=== PATIENT | female | born 1930 | race Caucasian/White ===

== ENCOUNTER → 2016-09-09 | Outpatient (CLI) | payer BC ==
[~2016-09-09] MED LIST: ACET-24 PO; CARV6.252 PO; CHOL100010 PO; CHOL20005 PO; CLOP1TAB15 PO; DENO60SO SC; DLCS PR; DOCU-94 PO; HYDR-3419 PO; HYDR-5688 PO; HYDR25TA4 PO; MELA1TAB5 PO; MORP1TAB12 PO; MORP30TA23 PO; MRLP17X PO; NISO20TA PO; PRAM1TAB52 PO; PRT40 PO; RISE150T PO; SENN-63 PO; SENN8.6T7 PO; SPIR25TA PO
[2016-09-09 09:16] LABS: ALT/SGPT 25 U/L (12-78); BLOOD UREA NITROGEN 13 mg/dl (7-18); BUN/CREATININE RATIO 20.2 (10-20); CARBON DIOXIDE 30 mmol/L (21-32); CHLORIDE 107 mmol/L (98-107); CREATININE 0.64 mg/dl (0.60-1.20); GLUCOSE 84 mg/dl (70-99); POTASSIUM 3.5 mmol/L (3.5-5.1); SODIUM 143 mmol/L (136-145)
[2016-09-09 09:26] LABS: ALB/GLOB RATIO 1.1 (0.9-2); ALKALINE PHOSPHATASE 62 U/L (45-117); AST/SGOT 25 U/L (15-37)
[2016-09-09 09:43] LABS: HEMATOCRIT 35.6 % (37-47); MEAN CELL VOLUME 94.7 fL (80-100); MEAN CORPUSCULAR HEMOGLOBIN 31.9 pg (25-34); MEAN CORPUSCULAR HGB CONC 33.7 g/dl (32-36); MEAN PLATELET VOLUME 10.8 fL (7.4-10.4); PLATELET COUNT 182 K/uL (130-400); RED BLOOD COUNT 3.76 M/uL (4.2-5.4)
== END ==
LOC: C.LABFOXMH 08:38
PROVIDERS: ATTEND Internal Medicine
DX: R60.0 Localized edema (principal); R63.4 Abnormal weight loss

== ENCOUNTER → 2016-11-19 | Outpatient (CLI) | payer BC ==
[2016-11-19 11:19] LABS: HEMATOCRIT 41.9 % (37-47); MEAN CELL VOLUME 95.7 fL (80-100); MEAN CORPUSCULAR HEMOGLOBIN 31.1 pg (25-34); MEAN CORPUSCULAR HGB CONC 32.5 g/dl (32-36); MEAN PLATELET VOLUME 10.4 fL (7.4-10.4); PLATELET COUNT 228 K/uL (130-400); RED BLOOD COUNT 4.38 M/uL (4.2-5.4); WHITE BLOOD COUNT 10.22 K/uL (4.8-10.8)
[2016-11-19 11:31] LABS: BLOOD UREA NITROGEN 17 mg/dl (7-18); BUN/CREATININE RATIO 21.2 (10-20); CALCIUM 11.2 mg/dl (8.5-10.1); CARBON DIOXIDE 24 mmol/L (21-32); CHLORIDE 111 mmol/L (98-107); CREATININE 0.78 mg/dl (0.60-1.20); GLUCOSE 106 mg/dl (70-99); MAGNESIUM 2.1 mg/dl (1.8-2.4); POTASSIUM 4.4 mmol/L (3.5-5.1); SODIUM 142 mmol/L (136-145)
== END | disposition home or self-care (01) ==
LOC: C.LABFOXMH 10:53
PROVIDERS: ATTEND Internal Medicine
DX: E11.9 Type 2 diabetes mellitus without complications (principal); R19.7 Diarrhea, unspecified

== ENCOUNTER → 2016-11-20 | Outpatient (CLI) | payer BC ==
[2016-11-20 11:53] LABS: HEMATOCRIT 40.3 % (37-47); MEAN CELL VOLUME 95.7 fL (80-100); MEAN CORPUSCULAR HEMOGLOBIN 31.1 pg (25-34); MEAN CORPUSCULAR HGB CONC 32.5 g/dl (32-36); MEAN PLATELET VOLUME 10.6 fL (7.4-10.4); PLATELET COUNT 223 K/uL (130-400); RED BLOOD COUNT 4.21 M/uL (4.2-5.4); WHITE BLOOD COUNT 11.67 K/uL (4.8-10.8)
[2016-11-20 12:03] LABS: BLOOD UREA NITROGEN 22 mg/dl (7-18); BUN/CREATININE RATIO 24.8 (10-20); CARBON DIOXIDE 23 mmol/L (21-32); CHLORIDE 110 mmol/L (98-107); CREATININE 0.88 mg/dl (0.60-1.20); GLUCOSE 95 mg/dl (70-99); MAGNESIUM 1.9 mg/dl (1.8-2.4); POTASSIUM 4.1 mmol/L (3.5-5.1); SODIUM 142 mmol/L (136-145)
[2016-11-20 12:10] LABS: CALCIUM 11.7 mg/dl (8.5-10.1)
== END | disposition home or self-care (01) ==
LOC: C.LABFOXDH 08:45
PROVIDERS: ATTEND Internal Medicine
DX: R19.7 Diarrhea, unspecified (principal)

== ENCOUNTER → 2016-11-23 | Outpatient (CLI) | payer BC ==
[2016-11-23 08:38] LABS: BLOOD UREA NITROGEN 23 mg/dl (7-18); BUN/CREATININE RATIO 37.7 (10-20); CARBON DIOXIDE 28 mmol/L (21-32); CHLORIDE 108 mmol/L (98-107); GLUCOSE 91 mg/dl (70-99); POTASSIUM 3.8 mmol/L (3.5-5.1); SODIUM 142 mmol/L (136-145)
[2016-11-23 08:45] LABS: CALCIUM 10.1 mg/dl (8.5-10.1)
== END | disposition home or self-care (01) ==
LOC: C.LABFOXDH 07:56
PROVIDERS: ATTEND Nurse Practitioner Family
DX: A04.7 Enterocolitis due to Clostridium difficile (principal)

== ENCOUNTER 2017-01-12 06:34 | Inpatient (IN) | payer OTHER, BC ==
[~2017-01-12] VITALS: Ht 152.4 cm; Wt 50.4 kg
[~2017-01-12 06:34] MED LIST changes: -ACET-24 PO; -CHOL20005 PO; -DENO60SO SC; -DLCS PR; -DOCU-94 PO; -HYDR-5688 PO; -MELA1TAB5 PO; -MORP1TAB12 PO; -MRLP17X PO; -PRAM1TAB52 PO; -PRT40 PO; -SENN8.6T7 PO; -SPIR25TA PO
[2017-01-12 07:02] LABS: BASO % 0.8 %; BASO ABS # 0.05 K/uL (0-0.2); COMPLETE YES; EOS % 4.2 %; IG% 0.2 %; LYMPH % 26.7 %; LYMPH ABS # 1.78 K/uL (1.2-3.4); MEAN CELL VOLUME 94.1 fL (80-100); MEAN CORPUSCULAR HEMOGLOBIN 31.5 pg (25-34); MEAN CORPUSCULAR HGB CONC 33.4 g/dl (32-36); MEAN PLATELET VOLUME 9.6 fL (7.4-10.4); MONO % 11.6 %; NEUT % 56.5 %; PLATELET COUNT 209 K/uL (130-400); WHITE BLOOD COUNT 6.66 K/uL (4.8-10.8)
[2017-01-12] MEDS ORDERED: DOCU-94 PO (07:06)
[2017-01-12] MEDS ORDERED: HYDR-5688 PO (07:06)
[2017-01-12] MEDS ORDERED: MORP1TAB12 PO (07:06)
[2017-01-12] MEDS ORDERED: MELA1TAB5 PO (07:06)
[2017-01-12] MEDS ORDERED: DENO60SO SC (07:06)
[2017-01-12] MEDS ORDERED: SPIR25TA PO (07:06)
[2017-01-12] MEDS ORDERED: CHOL20005 PO (07:06)
[2017-01-12 07:09] LABS: PARTIAL THROMBOPLASTIN RATIO 1.1
[2017-01-12 07:16] LABS: BUN/CREATININE RATIO 33.4 (10-20); CALCIUM 10.8 mg/dl (8.5-10.1); CREATININE 0.8 mg/dl (0.60-1.20); POTASSIUM 4.4 mmol/L (3.5-5.1)
[2017-01-12] MEDS ORDERED: FENTANYL CITRATE INJ 50 MCG/1 ML 2 ML VIAL ONE (07:18)
[2017-01-12] MEDS ORDERED: FENTANYL CITRATE INJ 50 MCG/1 ML 2 ML VIAL IV STA ×2 (07:19→08:12)
--- NOTE | 2017-01-12 07:36 | EMERGENCY ROOM VISIT NOTE ---
History Report prepared by Leonidas: Claudia Murguia Under the Supervision of: Dr. Alphonso Collins M.D. First contact with patient: 07:06 Chief Complaint: HIP PAIN Stated Complaint: HIP PAIN History of Present Illness The patient is an 86 year old female who presents to the Emergency Room with complaints of constant right hip pain that started EVENT PLANNER. The patient came to the ED via ambulance. She was given 8 mg of morphine en route to the ED. The patient states that she was standing at the table when she fell backward. The patient thinks that she fell because she was leaning on the chair and it fell over so she ended up falling with it. However, she is not exactly sure why she fell. She denies tripping over anything. She landed on her right hip. She denies any lightheadedness or chest pain prior to falling. The patient does not think that she hit her head. She denies neck pain, back pain, abdominal pain, and nausea. The patient is on Plavix for her heart. She does not take aspirin. Source of History: patient Onset: EVENT PLANNER Position: other (right hip) Quality: other (right hip pain) Timing: constant Associated Symptoms: No neck pain, No chest pain, No nausea, No abdominal pain, No back pain Note: no lightheadedness Review of Systems See HPI for pertinent positives and negatives. A total of ten systems were reviewed and were otherwise negative. 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 (2) Closed displaced fracture of right femoral neck (3) Diab Kath Wo Compl, Type Ii Or Unspec Type, Not Uncntrld (4) Hyperlipidemia Nec/Nos (5) Hypertension Nos (6) Lumbosacral Neuritis Nos (7) Lumbosacral Spondylosis (8) Polymyalgia Rheumatica (9) Sacroiliitis Nec (10) Venous Insufficiency Nos Family History No significant family history Social History Smoking Status: Never Smoker Alcohol Use: none Drug Use: none Marital Status: Occupation Status: retired Current/Historical Medications Scheduled Carvedilol (Coreg), 6.25 MG PO BID Cholecalciferol (Vitamin D3), 2,000 UNITS PO DAILY Clopidogrel (Plavix), 75 MG PO DAILY Denosumab (Prolia), 1 SYR SC Q6MO Morphine Sulfate (Morphine Sulfate Er), 30 MG PO QPM Pramipexole Dihydrochloride (Mirapex), 1 TAB PO HS Spironolactone (Aldactone), 25 MG PO DAILY Scheduled PRN Docusate Sodium (Colace), 1 CAP PO DAILY PRN for Constipation Hydrocodone/Acetaminophen 5MG/325MG ([place] 5MG/325MG), 1 TABLET PO Q4 PRN for Pain Melatonin (Kp Melatonin), 1 TAB PO HS PRN for Insomnia Allergies Coded Allergies: Adhesives (Verified Allergy, Mild, unknown, 06/10/15) Amoxicillin (Verified Allergy, Mild, rash, 06/10/15) Cephalexin (Verified Allergy, Mild, unknown, 06/10/15) Clavulanic Acid (Verified Allergy, Mild, rash, 06/10/15) Hydroxychloroquine (Verified Allergy, Mild, unknown, 06/10/15) Latex1 -Allergic Contact Dermititis (Verified Allergy, Mild, RASH, ) Zolpidem (Verified Allergy, Mild, rash, 06/10/15) Bacitracin (Verified Allergy, Unknown, rash, 06/10/15) Polymyxin B (Verified Allergy, Unknown, rash, 06/10/15) Uncoded Allergies: TELFA (Allergy, Mild, UNKNOWN, 03/17/13) Physical Exam Vital Signs Date Time Temp Pulse Resp B/P (MAP) Pulse Ox O2 Delivery O2 Flow Rate FiO2 01/12/17 08:15 86 16 152/96 96 Room Air 01/12/17 07:36 69 18 161/75 95 Room Air 01/12/17 06:42 37.1 69 18 151/108 95 Room Air Physical Exam GENERAL: Awake, alert, thin appearing, no distress HEAD: Normocephalic, atraumatic. No arciniega sign. No raccoon eyes. EYES: Normal conjunctiva. PERRL. EARS: External ears normal. NOSE: Atraumatic OROPHARYNX: Mucous membranes dry. No erythema or exudate. NECK: No tracheal deviation or JVD. No posterior midline tenderness. No step offs noted. RESPIRATORY: CTA bilaterally CARDIAC: Regular rate, normal rhythm. ABDOMEN: Inspection reveals no abnormalities. Soft, non distended. No tenderness to palpation. No hernias. BACK: No midline step offs or tenderness to palpation. Unremarkable. PELVIS: Stable to rock but tenderness to the right, deformity at the proximal femur with pain with range of motion. SKIN: Normal. LYMPH: No adenopathy. MUSCULOSKELETAL: Upper and lower extremities are atraumatic. Distal pulse, motor , sensory intact. NEURO: GCS 15. Normal sensorium. No sensory or motor deficits noted. Medical Decision & Procedures ER Provider Diagnostic Interpretation: Radiology results as stated below per my review and radiologist interpretation: CHEST ONE VIEW PORTABLE FINDINGS: Electrodes overlying the mid thoracic spine along the right side are unchanged. Cardiac silhouette is again enlarged. 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 Based on this projection, this appears to measure up to 5.5 cm. This may be accentuated by patient rotation to the left. No pneumothorax or large pleural effusion. Coarse perihilar reticular opacities suggest chronic changes without focal airspace consolidation. Lungs are mildly hyperinflated. The bones are diffusely demineralized. Sigmoidal scoliosis of the spine is seen. IMPRESSION: 1. No acute cardiopulmonary process. 2. Atherosclerosis with apparent aneurysmal dilation and tortuosity of the thoracic aorta which appears progressed from study dated 10/30/2009 and likely accentuated by patient rotation. The above report was generated using voice recognition software. It may contain grammatical, syntax or spelling errors. Electronically signed by: Jose Adam M.D. 01/12/2017 8:07 AM Dictated Date/Time: 01/12/2017 8:03 AM RIGHT PELVIS/UNILATERAL HIP 2-3VIEWS, RIGHT FEMUR 2 VIEWS ROUTINE FINDINGS: Pelvis and right hip: Moderate degenerative changes are seen within the pubic symphysis. 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 There is convex right curvature of the lumbar spine with multilevel advanced degenerative changes. The bones are moderately demineralized throughout. Peripheral vascular calcifications are seen. There is an acute transcervical fracture of the right femoral neck with superior displacement of 1.3 cm involving the distal femoral neck. No significant impaction. The femoral head is maintained within the acetabular fossa. Moderate soft tissue swelling is seen about the right hip. Lesser and greater trochanters are intact. Right femur: Mildly displaced transcervical right femoral neck fracture is again seen. The distal femur is intact. Moderate degenerative changes are seen about the right knee with small joint effusion. IMPRESSION: 1. Acute mildly displaced transcervical fracture of the right femoral neck with associated soft tissue swelling. 2. No additional acute pelvic or right femoral fracture identified. The above report was generated using voice recognition software. It may contain grammatical, syntax or spelling errors. Electronically signed by: Jose Adam M.D. 01/12/2017 8:02 AM Dictated Date/Time: 01/12/2017 7:58 AM Laboratory Results 01/12/17 06:40 Red Blood Count 3.40, Mean Corpuscular Volume 94.1, Mean Corpuscular Hemoglobin 31.5, Mean Corpuscular Hemoglobin Concent 33.4, Mean Platelet Volume 9.6, Neutrophils (%) (Auto) 56.5, Lymphocytes (%) (Auto) 26.7, Monocytes (%) (Auto) 11.6, Eosinophils (%) (Auto) 4.2, Basophils (%) (Auto) 0.8, Neutrophils # (Auto ) 3.77, Lymphocytes # (Auto) 1.78, Monocytes # (Auto) 0.77, Eosinophils # (Auto ) 0.28, Basophils # (Auto) 0.05 01/12/17 06:40 Test 01/12/17 06:40 01/12/17 08:26 White Blood Count 6.66 K/uL (4.8-10.8) Red Blood Count 3.40 M/uL (4.2-5.4) Hemoglobin 10.7 g/dL (12.0-16.0) Hematocrit 32.0 % (37-47) Mean Corpuscular Volume 94.1 fL (80-100) Mean Corpuscular Hemoglobin 31.5 pg (25-34) Mean Corpuscular Hemoglobin Concent 33.4 g/dl (32-36) Platelet Count 209 K/uL (130-400) Mean Platelet Volume 9.6 fL (7.4-10.4) Neutrophils (%) (Auto) 56.5 % Lymphocytes (%) (Auto) 26.7 % Monocytes (%) (Auto) 11.6 % Eosinophils (%) (Auto) 4.2 % Basophils (%) (Auto) 0.8 % Neutrophils # (Auto) 3.77 K/uL (1.4-6.5) Lymphocytes # (Auto) 1.78 K/uL (1.2-3.4) Monocytes # (Auto) 0.77 K/uL (0.11-0.59) Eosinophils # (Auto) 0.28 K/uL (0-0.5) Basophils # (Auto) 0.05 K/uL (0-0.2) RDW Standard Deviation 41.3 fL (36.4-46.3) RDW Coefficient of Variation 12.2 % (11.5-14.5) Immature Granulocyte % (Auto) 0.2 % Immature Granulocyte # (Auto) 0.01 K/uL (0.00-0.02) Prothrombin Time 11.0 SECONDS (9.0-12.0) Prothromb Time International Ratio 1.0 (0.9-1.1) Activated Partial Thromboplast Time 28.6 SECONDS (21.0-31.0) Partial Thromboplastin Ratio 1.1 Anion Gap 6.0 mmol/L (3-11) Est Creatinine Clear Calc Drug Dose 35.6 ml/min Estimated GFR () 76.8 Estimated GFR (Non- 66.3 BUN/Creatinine Ratio 33.4 (10-20) Calcium Level 10.8 mg/dl (8.5-10.1) 25-Hydroxy Vitamin D Total 41.9 ng/ml (30-100) Urine Color YELLOW Urine Appearance CLEAR (CLEAR) Urine pH 6.0 (4.5-7.5) Urine Specific [place] 1.019 (1.000-1.030) Urine Protein NEG (NEG) Urine Glucose (UA) NEG (NEG) Urine Ketones NEG (NEG) Urine Occult Blood NEG (NEG) Urine Nitrite NEG (NEG) Urine Bilirubin NEG (NEG) Urine Urobilinogen NEG (NEG) Urine Leukocyte Esterase NEG (NEG) Date/Time Source Procedure Growth Status 01/12/17 00:00 Nasal MRSA DNA Surveillance Screen - Final Specimen Negative for MRSA by DNA Probe Complete Laboratory results reviewed by me Medications Administered Medications (Trade) Dose Ordered Sig/Thomas Route Start Time Stop Time Status Last Admin Dose Admin Fentanyl Citrate (Fentanyl Inj) 50 mcg NOW STAT IV 01/12/17 07:19 01/12/17 07:20 DC 01/12/17 07:35 50 MCG Fentanyl Citrate (Fentanyl Inj) 50 mcg NOW STAT IV 01/12/17 08:12 01/12/17 08:20 DC 01/12/17 08:33 50 MCG Ondansetron HCl (Zofran Inj) 4 mg Q6H PRN IV 01/12/17 08:45 02/11/17 08:44 01/12/17 14:17 4 MG Oxycodone HCl (Roxicodone Immediate Rel Tab) 5 mg Q4H PRN PO 01/12/17 08:45 01/26/17 08:44 01/12/17 12:11 5 MG Morphine Sulfate (MoRPHine SULFATE INJ) 2 mg Q2H PRN IV 01/12/17 08:45 01/26/17 08:44 01/12/17 12:54 2 MG ECG Indication: weakness Rate (beats per minute): 70 Rhythm: normal sinus Findings: 1st degree AV block, RBBB (baseline), no acute ischemic change Comparison ECG Date: 10/30/2009 Change: 1st degree AV block is new ED Course 0717: The patient was evaluated in room A11. A complete history and physical exam was performed. 0804: Upon reexamination, the patient was resting comfortably. I discussed the test results and treatment plan with her. The patient will be evaluated for further management. 0812: Ordered Fentanyl Citrate 50 mcg IV 0821: Discussed the patient's case with Dr. Morrison of the [facility]. The patient will be evaluated for further treatment and disposition. Medical Decision I reviewed the patient's past medical history, medications, and the nursing notes as described above. Differential diagnosis: Etiologies such as fracture, dislocation, neurovascular compromise, soft tissue injury Patient is a 86-year-old woman with a past medical history of coronary disease on Plavix presents to the emergency department after a fall at home when she was standing at a table leaning on a chair and lost her balance falling down. Patient denies any preceding chest pain shortness of breath headaches or dizziness or head strike or LOC. On arrival patient is uncomfortable with right leg internally rotated and slightly shortened. Distal pulse motor sensory intact. AFVSS. Neuro intact without any evidence of head trauma. No indication for CT scan at this time. Otherwise, X-ray demonstrated a right mildly displaced femoral neck fracture. Preoperative labs ordered and Boyd catheter placed. H&H mildly decreased from recent however patient denies any bloody or black stools. EKG similar to prior. [facility] as patient has follow with them in the past and evaluated patient. Admitted to hospital medicine considering patient's age and comorbidities. Head Trauma GCS Score: 15 Medication Reconcilliation Current Medication List: was personally reviewed by me Blood Pressure Screening Patient's blood pressure: Elevated blood pressure Blood pressure disposition: Elevated BP felt to be situational Consults Time Called: 806 Consulting Physician: Dr. Morrison - MNP Returned Call: 0821 Discussed the patient's case with Dr. Morrison of the [facility]. The patient will be evaluated for further treatment and disposition. Impression Primary Impression: Displaced fracture of right femoral neck Scribe Attestation The scribe's documentation has been prepared under my direction and personally reviewed by me in its entirety. I confirm that the note above accurately reflects all work, treatment, procedures, and medical decision making performed by me. Departure Information Dispostion Being Evaluated By Hospitalist Referrals Araceli Contreras (PCP) Patient Instructions My [facility] Problem Qualifiers Primary Impression: Displaced fracture of right femoral neck Encounter type: initial encounter Fracture type: closed Qualified Codes: S72.001A - Fracture of unspecified part of neck of right femur, initial encounter for closed fracture
--- NOTE | 2017-01-12 08:04 | DIAGNOSTIC IMAGING REPORT ---
RIGHT PELVIS/UNILATERAL HIP 2-3VIEWS, RIGHT FEMUR 2 VIEWS ROUTINE HISTORY: 86 years-old Female Right hip pain s/p fall Right COMPARISON: None available TECHNIQUE: AP view of the pelvis with 2 views of the right hip. 3 views of the right femur were also obtained. FINDINGS: Pelvis and right hip: Moderate degenerative changes are seen within the pubic symphysis. 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 There is convex right curvature of the lumbar spine with multilevel advanced degenerative changes. The bones are moderately demineralized throughout. Peripheral vascular calcifications are seen. There is an acute transcervical fracture of the right femoral neck with superior displacement of 1.3 cm involving the distal femoral neck. No significant impaction. The femoral head is maintained within the acetabular fossa. Moderate soft tissue swelling is seen about the right hip. Lesser and greater trochanters are intact. Right femur: Mildly displaced transcervical right femoral neck fracture is again seen. The distal femur is intact. Moderate degenerative changes are seen about the right knee with small joint effusion. IMPRESSION: 1. Acute mildly displaced transcervical fracture of the right femoral neck with associated soft tissue swelling. 2. No additional acute pelvic or right femoral fracture identified. The above report was generated using voice recognition software. It may contain grammatical, syntax or spelling errors. Electronically signed by: Jose Adam M.D. 01/12/2017 8:02 AM Dictated Date/Time: 01/12/2017 7:58 AM
--- NOTE | 2017-01-12 08:08 | DIAGNOSTIC IMAGING REPORT ---
CHEST ONE VIEW PORTABLE HISTORY: 86 years-old Female FAll, hip injury COMPARISON: Chest radiograph 10/30/2009 TECHNIQUE: Portable AP view of the chest. FINDINGS: Electrodes overlying the mid thoracic spine along the right side are unchanged. Cardiac silhouette is again enlarged. 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 Based on this projection, this appears to measure up to 5.5 cm. This may be accentuated by patient rotation to the left. No pneumothorax or large pleural effusion. Coarse perihilar reticular opacities suggest chronic changes without focal airspace consolidation. Lungs are mildly hyperinflated. The bones are diffusely demineralized. Sigmoidal scoliosis of the spine is seen. IMPRESSION: 1. No acute cardiopulmonary process. 2. Atherosclerosis with apparent aneurysmal dilation and tortuosity of the thoracic aorta which appears progressed from study dated 10/30/2009 and likely accentuated by patient rotation. The above report was generated using voice recognition software. It may contain grammatical, syntax or spelling errors. Electronically signed by: Jose Adam M.D. 01/12/2017 8:07 AM Dictated Date/Time: 01/12/2017 8:03 AM
[2017-01-12 08:37] LABS: URINE APPEARANCE CLEAR (CLEAR); URINE BILIRUBIN NEG (NEG); URINE COLOR YELLOW; URINE NITRITE NEG (NEG); URINE SPECIFIC GRAVITY 1.019 (1.000-1.030); UROBILINOGEN NEG (NEG); ZZURINE CULT IF INDIC CATH NO
[2017-01-12 08:40] LABS: MANUAL MICROSCOPIC REQUIRED? NO; REVIEW REQ? NO
[2017-01-12] MEDS ORDERED: POLYETHYLENE (MIRALAX) 17 GM PACK PO PRN (08:45)
[2017-01-12] MEDS ORDERED: NALOXONE HCL 0.4 MG/1 ML VIAL/CARP IV PRN (08:45)
[2017-01-12] MEDS ORDERED: SOD PHOSPHATE/SOD BIPHOSPHATE ENEMA 132 ML BTL PR PRN (08:45)
[2017-01-12] MEDS ORDERED: BISACODYL 10 MG SUPP PR PRN (08:45)
[2017-01-12] MEDS ORDERED: MAGNESIUM HYDROXIDE SUSP 30 ML UDC PO PRN (08:45)
--- NOTE | 2017-01-12 08:49 | History and Physical ---
History & Physical Date & Time of Service: Jan 12, 2017 at 08:28 Chief Complaint: Hip Pain Primary Care Physician: Araceli Contreras History of Present Illness Source: patient This is a 86 yo F with PMHx of HTN, polymyalgia rheumatica with remote use of chronic prednisone, remote smoking hx, 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 She reports being seated in her living room, and that she was reaching for some cards she was planning on mailing, and the chair moved and she fell on the ground. Pt regularly uses a walker for ambulation and was using it this morning. She was on the ground and crawled to the bedroom to ring for a nurse, and now has a skin tear on her left elbow. She denies any LOC, trauma or injury sustained to the head. The patient states last time she ate was last evening. She reports her pain is currently moderate, although cannot give a number. It is localized to the right hip, and feels like she needs to keep moving her toes although that worsens the pain. She denies any numbness or tingling. Pt notes she was recently treated by Dr. De La Garza and was very sick due to an antibiotic although cannot name it. I called and spoke with nursing at [facility]: the patient recently had a very bad case of C. difficile, on November 19- admitted to [facility] at [facility], due to 1 time dose of Clindamycin used for prophylactic dental procedure and extraction as she was being fitted for a new partial. Pt took plavix last evening. Here in the ED, imaging obtained and shows an Acute mildly displaced transcervical fracture of the right femoral neck with associated soft tissue swelling. No additional acute pelvic or right femoral fracture identified. Hgb is 10.7, and slightly decreased from her baseline of 12.5-13. Past Medical/Surgical History Polymyalgia Rhematica Osteoporosis HTN Chronic Back pain Remote Smoking history Hx CVA in 2009 on plavix Family History No significant family history Social History Smoking Status: Former Smoker Smokeless Tobacco Use: No Alcohol Use: none Drug Use: none Marital Status: Housing status: lives alone Occupational Status: retired Immunizations History of Influenza Vaccine: Yes Influenza Vaccine Date: October 31, 2008 History of Tetanus Vaccine?: Unknown History of Pneumococcal: Yes Pneumococcal Date: November 01, 2007 History of Hepatitis B Vaccine: Unknown Multi-Drug Resistant Organisms History of MDRO: No Allergies Coded Allergies: Adhesives (Verified Allergy, Mild, unknown, 06/10/15) Amoxicillin (Verified Allergy, Mild, rash, 06/10/15) Cephalexin (Verified Allergy, Mild, unknown, 06/10/15) Clavulanic Acid (Verified Allergy, Mild, rash, 06/10/15) Hydroxychloroquine (Verified Allergy, Mild, unknown, 06/10/15) Latex1 -Allergic Contact Dermititis (Verified Allergy, Mild, RASH, ) Zolpidem (Verified Allergy, Mild, rash, 06/10/15) Bacitracin (Verified Allergy, Unknown, rash, 06/10/15) Polymyxin B (Verified Allergy, Unknown, rash, 06/10/15) Uncoded Allergies: TELFA (Allergy, Mild, UNKNOWN, 03/17/13) Home Medications Scheduled Carvedilol (Coreg), 6.25 MG PO BID Cholecalciferol (Vitamin D3), 2,000 UNITS PO DAILY Clopidogrel (Plavix), 75 MG PO DAILY Denosumab (Prolia), 1 SYR SC Q6MO Morphine Sulfate (Morphine Sulfate Er), 30 MG PO QPM Pramipexole Dihydrochloride (Mirapex), 1 TAB PO HS Spironolactone (Aldactone), 25 MG PO DAILY Scheduled PRN Docusate Sodium (Colace), 1 CAP PO DAILY PRN for Constipation Hydrocodone/Acetaminophen 5MG/325MG ([place] 5MG/325MG), 1 TABLET PO Q4 PRN for Pain Melatonin (Kp Melatonin), 1 TAB PO HS PRN for Insomnia Review of Systems Constitutional: No fever, No chills, No sweats Eyes: No redness, No diplopia ENT: No sore throat, No trouble swallowing Respiratory: No cough, No shortness of breath, No dyspnea on exertion, No dyspnea at rest Cardiovascular: No chest pain, No palpitations Abdomen: + constipation (occasionally, last BM was yesterday), No pain, No nausea, No vomiting, No diarrhea, No GI bleeding Musculoskeletal: + joint pain (R hip), No swelling, No calf pain Genitourinary - Female: No dysuria, No urinary urgency Neurologic: No memory loss, No paralysis Psychiatric: No anxiety Endocrine: No fatigue, No excessive thirst Hematologic / Lymphatic: No abnormal bleeding/bruising, No clotting problems Integumentary: No rash, No itch Physical Exam Vital Signs Date Time Temp Pulse Resp B/P (MAP) Pulse Ox O2 Delivery O2 Flow Rate FiO2 01/12/17 08:15 86 16 152/96 96 Room Air 01/12/17 07:36 69 18 161/75 95 Room Air 01/12/17 06:42 37.1 69 18 151/108 95 Room Air General Appearance: WD/WN, no apparent distress, + thin Head: normocephalic, atraumatic Eyes: PERRL, EOMI ENT: hearing grossly normal, pharynx normal Neck: supple, no JVD Respiratory/Chest: chest non-tender, lungs clear, no respiratory distress, no accessory muscle use Cardiovascular: no JVD, no murmur, + tachycardia, + pertinent finding (few extra beats) Abdomen/GI: normal bowel sounds, non tender, soft, no organomegaly Extremities/Musculoskelatal: normal inspection, no calf tenderness Neurologic/Psych: alert, normal mood/affect, normal reflexes, oriented x 3 Skin: normal color, warm/dry Diagnostics Laboratory Results Results Past 24 Hours Test 01/12/17 06:40 Range/Units White Blood Count 6.66 4.8-10.8 K/uL Red Blood Count 3.40 4.2-5.4 M/uL Hemoglobin 10.7 12.0-16.0 g/dL Hematocrit 32.0 37-47 % Mean Corpuscular Volume 94.1 80-100 fL Mean Corpuscular Hemoglobin 31.5 25-34 pg Mean Corpuscular Hemoglobin Concent 33.4 32-36 g/dl Platelet Count 209 130-400 K/uL Mean Platelet Volume 9.6 7.4-10.4 fL Neutrophils (%) (Auto) 56.5 % Lymphocytes (%) (Auto) 26.7 % Monocytes (%) (Auto) 11.6 % Eosinophils (%) (Auto) 4.2 % Basophils (%) (Auto) 0.8 % Neutrophils # (Auto) 3.77 1.4-6.5 K/uL Lymphocytes # (Auto) 1.78 1.2-3.4 K/uL Monocytes # (Auto) 0.77 0.11-0.59 K/uL Eosinophils # (Auto) 0.28 0-0.5 K/uL Basophils # (Auto) 0.05 0-0.2 K/uL RDW Standard Deviation 41.3 36.4-46.3 fL RDW Coefficient of Variation 12.2 11.5-14.5 % Immature Granulocyte % (Auto) 0.2 % Immature Granulocyte # (Auto) 0.01 0.00-0.02 K/uL Prothrombin Time 11.0 9.0-12.0 SECONDS Prothromb Time International Ratio 1.0 0.9-1.1 Activated Partial Thromboplast Time 28.6 21.0-31.0 SECONDS Partial Thromboplastin Ratio 1.1 Sodium Level 139 136-145 mmol/L Potassium Level 4.4 3.5-5.1 mmol/L Chloride Level 105 98-107 mmol/L Carbon Dioxide Level 28 21-32 mmol/L Anion Gap 6.0 3-11 mmol/L Blood Urea Nitrogen 27 7-18 mg/dl Creatinine 0.80 0.60-1.20 mg/dl Est Creatinine Clear Calc Drug Dose 35.6 ml/min Estimated GFR () 76.8 Estimated GFR (Non- 66.3 BUN/Creatinine Ratio 33.4 10-20 Random Glucose 108 70-99 mg/dl Calcium Level 10.8 8.5-10.1 mg/dl Diagnostic Radiology RIGHT PELVIS/UNILATERAL HIP 2-3VIEWS, RIGHT FEMUR 2 VIEWS ROUTINE HISTORY: 86 years-old Female Right hip pain s/p fall Right COMPARISON: None available TECHNIQUE: AP view of the pelvis with 2 views of the right hip. 3 views of the right femur were also obtained. FINDINGS: Pelvis and right hip: Moderate degenerative changes are seen within the pubic symphysis. 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 There is convex right curvature of the lumbar spine with multilevel advanced degenerative changes. The bones are moderately demineralized throughout. Peripheral vascular calcifications are seen. There is an acute transcervical fracture of the right femoral neck with superior displacement of 1.3 cm involving the distal femoral neck. No significant impaction. The femoral head is maintained within the acetabular fossa. Moderate soft tissue swelling is seen about the right hip. Lesser and greater trochanters are intact. Right femur: Mildly displaced transcervical right femoral neck fracture is again seen. The distal femur is intact. Moderate degenerative changes are seen about the right knee with small joint effusion. IMPRESSION: 1. Acute mildly displaced transcervical fracture of the right femoral neck with associated soft tissue swelling. 2. No additional acute pelvic or right femoral fracture identified. The above report was generated using voice recognition software. It may contain grammatical, syntax or spelling errors. Electronically signed by: Jose Adam M.D. 01/12/2017 8:02 AM Dictated Date/Time: 01/12/2017 7:58 AM The status of this report is Signed. HISTORY: 86 years-old Female FAll, hip injury COMPARISON: Chest radiograph 10/30/2009 TECHNIQUE: Portable AP view of the chest. FINDINGS: Electrodes overlying the mid thoracic spine along the right side are unchanged. Cardiac silhouette is again enlarged. 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 Based on this projection, this appears to measure up to 5.5 cm. This may be accentuated by patient rotation to the left. No pneumothorax or large pleural effusion. Coarse perihilar reticular opacities suggest chronic changes without focal airspace consolidation. Lungs are mildly hyperinflated. The bones are diffusely demineralized. Sigmoidal scoliosis of the spine is seen. IMPRESSION: 1. No acute cardiopulmonary process. 2. Atherosclerosis with apparent aneurysmal dilation and tortuosity of the thoracic aorta which appears progressed from study dated 10/30/2009 and likely accentuated by patient rotation. The above report was generated using voice recognition software. It may contain grammatical, syntax or spelling errors. Electronically signed by: Jose Adam M.D. 01/12/2017 8:07 AM Dictated Date/Time: 01/12/2017 8:03 AM The status of this report is Signed. EKG Vent. rate 70 BPM SD interval 218 ms QRS duration 140 ms QT/QTc 416/449 ms P-R-T axes 87 -54 32 Sinus rhythm with 1st degree A-V block Right bundle branch block Left anterior fascicular block Bifascicular block Voltage criteria for left ventricular hypertrophy Cannot rule out Septal infarct , age undetermined Abnormal ECG When compared with ECG of 30-OCT-2009 19:45, Previous ECG has undetermined rhythm, needs review Nonspecific T wave abnormality has replaced inverted T waves in Anterior leads ... Impression Assessment and Plan This is a 86 yo F with PMHx of HTN, polymyalgia rheumatica with remote use of chronic prednisone, remote smoking hx, 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 S/p R femoral neck fracture - Admit to med surg- hip fracture order set - NPO except meds today in anticipation of surgical procedure later this evening. - Ortho consulted- spoke with Cj Shelton PA-C at bedside - Pain control with oxy 5 mg PO Q4H, morphine sulfate 2 mg IV Q2H, and tylenol 1 g Q8H merari. PT regularly takes morphine sulfate ER 30 mg QPM for chronic back pain, will continue this as well. - Bowel regimen on board w/ dulcolax, mirilax, senna - Hgb 10.7, baseline ~13. Will monitor with AM labs - PT/OT ordered - Will attempt to contact Dr. De La Garza and/or his partners at [facility] to discuss the patient's recent illness due to antibiotics and bring him up to date. Hx of C. difficile infection - November 19-2016 s/p Clinda for dental procedure/extraction - Treated with flagyl at that time. Pt denies diarrhea at this time. - Awaiting a call back from [facility] physician regarding needs for preop abx therapy. Osteoporosis - Check Vit D level - PT is on denosumab (prolia) 60 mg/mL as oupatient Q6 months Hx of C diff. - Nov 19 and required admission to [facility], was treated with flagyl at that time. - Will place on Lactinex QID for now HTN - Continue spironolactone 25 mg QAM and coreg 6.25 mg BID Hx of CVA in 2009 - Hold plavix for now, last dose was last evening. Constipation - Bowel regimen as above, last BM yesterday Restless Leg Syndrome - Continue mirapex 0.25 mg QPM. Chronic Back pain - Analgesia as above, continue home regimen of MS ER 30 mg QPM and allow for IV for break through pain. DVT ppx: Teds, SCDs, no chemical anticoagulation in light of sugical procedure CODE STATUS: DNR Disposition: From [facility] to assist with discharge planning, PT/OT evals after surgery Level of Care Med/Surg Advanced Directives Existing Advance Directive: Yes Existing Living Will: Yes Existing Power of Highway Traffic Control Technician: Yes Existing Health Care Proxy: Yes Resuscitation Status DO NOT RESUSCITATE VTE Prophylaxis VTE Risk Assessment Done? Y/N: Yes Risk Level: Low Given or contraindicated: T.E.D. Stockings, SCD's Social Service Consult >80 yr.& Lives Alone Note Attending Attestation: Pt seen/examined, chart reviewed, care plan d/w GLENYS Herr. I agree w/ the felton components of her admission documentation. 86yo female with h/o HTN, prior tobacco dependence, PMR, chronic pain syndrome, stroke, and CKD stage 3 presenting with a fall leading to right hip fracture. Fall was accidental and not associated with chest pain, sob, or syncope/ presyncope. Of note - had c. diff colitis in November requiring 10 day stay in the [facility] unit. Otherwise lives independently. PMH, PSH, allergies, meds, sochx, famhx, ros - reviewed VSS, afebrile gen - thin, NAD, mildly confused neck - no JVD mouth - MM dry heart - irregular (extra beats), s1, s2, no murmur lungs - CTA b/l back - scoliotic abd - soft, NT, ND, BS+ ext - right leg shorter and externally rotated, pulses 2+ b/l feet; rad pulses 2 + b/l wrists labs - Hb 10.7 BUN elevated Cr normal Ca elevated EKG - NSR, 1st degree AVB, RBBB, LAFB, no ST changes cxr with ?aortic aneurysm right hip fracture on plain x-rays A/P: 1. right hip fracture - bedrest, IVF, pain control, ortho consult 2. ?aortic aneurysm vs artifactual - CT chest to exclude thoracic aortic aneurysm; presence of such would confer higher surgical risk 3. dehydration - evidenced by high BUN; hydrate, repeat BMP am 4. anemia - normocytic - check Fe studies, b12, folic acid - AM 5. hypercalcemia - repeat BMP in am; could be 2nd to dehydration 6. h/o CVA - noted 7. chronic pain syndrome - agree with continuing home pain meds + IV for prn usage 8. CKD 3 - repeat BMP am from a risk standpoint she is at least a moderate risk for a cardiopulmonary event perioperatively; this risk would be higher if thoracic aortic aneurysm is present would not perform any other preop testing except the CT chest pt reports no limiting chest pain/dyspnea at home with activity Pranay Rodriguez MD
[2017-01-12] MEDS ORDERED: SPIRONOLACTONE 25 MG TAB PO SCH (09:00)
[2017-01-12 09:20] VITALS: O2SAT 96; Ht 152.4 cm; Wt 50.4 kg
[2017-01-12 10:13] VITALS: BP 155/71; PULSE 83; TEMP 36.5; O2SAT 93
[2017-01-12] MEDS ORDERED: PRAM1TAB52 PO (10:31)
[2017-01-12] MEDS: MoRPHine SULFATE 2 MG/ML CARP IV PRN ×3 (11:01→18:50)
[2017-01-12] MEDS: LACTOBACILLUS ACIDOPHILUS (FLORANEX) TAB PO SCH ×3 (12:11→20:42)
[2017-01-12] MEDS: OXYCODONE HCL IR 5 MG TAB (IMMEDIATE RELEASE) PO PRN ×2 (12:11→19:19)
[2017-01-12] MEDS: CHOLECALCIFEROL 1000 INTER.UNIT TAB PO SCH (12:12)
[2017-01-12] MEDS: CARVEDILOL 6.25 MG TAB PO SCH ×2 (12:13→20:41)
[2017-01-12] MEDS ORDERED: CLINDAMYCIN IV 900 MG in DEXTROSE 5% 100ML 100 ML IV SCH (14:00)
--- NOTE | 2017-01-12 14:05 | DIAGNOSTIC IMAGING REPORT ---
(CHEST) THORAX WITHOUT CT DOSE: 475.03 mGy.cm CLINICAL HISTORY: 86 years-old Female with assess thoracic aneurysm. Dilation of the thoracic aorta noted on comparison chest radiograph. TECHNIQUE: Multiaxial CT images of the chest were performed without contrast. A dose lowering technique was utilized adhering to the principles of ALARA. COMPARISON: Chest radiograph 01/12/2017 and 10/30/2009 FINDINGS: The exam is mildly limited secondary to patient motion. No dominant thyroid nodule is seen. No pathologic adenopathy of the chest is identified. The heart is enlarged with extensive coronary arterial calcifications. The thoracic aorta is not significantly dilated measuring 3.1 x 3.4 cm at the ascending portion. No descending thoracic aortic aneurysm is seen. The apparent aneurysmal dilation seen on comparison chest radiograph was projectional. There is dilation of the main pulmonary artery, 3.2 cm suggesting underlying pulmonary arterial hypertension. There is moderate biapical pleural-parenchymal scarring. No pneumothorax or pleural effusion. There is a pleural-based 7 x 5 mm noncalcified pulmonary nodule of the lateral basal segment left lower lobe seen on image 207 of the axial series. There is volume loss with pleural-parenchymal scarring of the left lower lobe. Mild atelectasis or scarring is seen within the inferior segment lingula. There are calcifications of the tracheobronchial tree. Central airways appear patent. There are multiple nonspecific low attenuating lesions throughout the hepatic parenchyma measuring up to 2.1 cm. Additionally, there are calcifications near the hepatic dome and diaphragmatic interface. There is a large partially imaged cystic structure of the right upper abdomen, 5.9 x 3.4 cm which may reflect abnormally positioned gallbladder. Increased attenuation within the region of the left renal sinus is suspicious for possible nephrolithiasis. 6 mm hyperattenuating lesion of the interpolar left kidney is nonspecific however suggest pernicious cyst. Advanced degenerative changes of the spine are noted. Electrode leads are noted in the central canal the midthoracic spine. There is sigmoidal scoliosis of the spine with convex left curvature of the lower thoracic spine. IMPRESSION: 1. Extensive atherosclerotic vascular disease without thoracic aortic aneurysm. Previously questioned aneurysmal dilation is attributed to projection and thoracic aortic tortuosity. 2. Evidence of pulmonary arterial hypertension. 3. Pleural-based noncalcified pulmonary nodule of the lateral basal segment left lower lobe is seen, 7 x 5 mm. Follow-up according to guidelines below recommended. 4. Chronic volume loss and scarring of the left lung base with associated sigmoidal thoracolumbar scoliosis. 5. Multiple low attenuating lesions throughout the hepatic parenchyma measuring up to 2.1 cm are nonspecific without comparison on this noncontrast study. Please refer to below summary of Fleischner criteria recommendations for follow-up of incidental CT nodules (Dorian Jimenes, Guidelines for management of small pulmonary nodules detected on CT scans: A statement from the Fleischner Society, Radiology 237: [phone].) SOLID NODULES Solitary nodule size: 6-8 mm * Low risk patients: follow-up at 6-12 months, then consider further follow-up at 18-24 months * high risk patients: initial follow-up CT at 6-12 months and then at 18-24 months if no change Note: newly detected indeterminate nodule in persons 35 years of age or older. * Low risk patients: minimal or absent history of smoking and/or other known risk factors * high risk patients: history of smoking or of other known risk factors (e.g. first degree relative with lung cancer, or exposure to asbestos, radon, uranium) * if a nodule up to 8 mm is partly solid or is ground glass further follow-up is required after 24 months to exclude possible slow growing adenocarcinoma (RGOE) The above report was generated using voice recognition software. It may contain grammatical, syntax or spelling errors. Electronically signed by: Jose Adam M.D. 01/12/2017 2:03 PM Dictated Date/Time: 01/12/2017 1:51 PM
[2017-01-12] MEDS: ACETAMINOPHEN 500 MG TAB PO SCH ×2 (14:14→22:13)
[2017-01-12] MEDS: ONDANSETRON INJ 2 MG/ML 2 ML VIAL IV PRN (14:17)
[2017-01-12] MEDS: D5W AND NSS 1,000 ML IV SCH ×2 (14:19→23:48)
[2017-01-12 14:58] VITALS: BP 126/63; PULSE 81; TEMP 37.1; O2SAT 95
--- NOTE | 2017-01-12 14:58 | CONSULTATION REPORT ---
DATE OF CONSULTATION: 01/12/2017 DATE OF CONSULTATION: 01/12/2017. REASON FOR CONSULT: Right hip fracture. HISTORY OF PRESENT ILLNESS: The patient is an 86-year-old white female who resides at [facility]. The patient states she does not remember how she fell, however she states that she was at her desk in her apartment earlier this morning and was about to start her day. She states that she is unsure of what caused the fall. She does not remember losing consciousness, but does remember falling to the ground. She had immediate pain in her hip and groin and she was unable to ambulate and she was thusly brought to the Emergency Room here at [facility]. She was seen by the staff. X-rays were taken and was found to have a right femoral neck fracture. We were consulted to see her for this fracture. PAST MEDICAL HISTORY: Hypertension, polymyalgia rheumatica with remote use of chronic prednisone, history of CVA in 2009 on Plavix, osteoporosis, chronic low back pain. PAST SURGICAL HISTORY: Tonsillectomy. FAMILY HISTORY: Noncontributory. SOCIAL HISTORY: The patient is a former smoker who no longer smokes and does not use alcohol and is and lives at [facility]. MEDICATIONS: Carvedilol 6.25 mg p.o. b.i.d., vitamin D3 2000 units p.o. daily, clopidogrel 75 mg p.o. daily, Prolia 1 subQ injection every 6 months, morphine sulfate extended release 30 mg p.o. q.p.m., Mirapex 1 tab p.o. at bedtime, spironolactone 25 mg p.o. daily, Colace 1 cap p.o. daily p.r.n., [place] 5/325 one tablet p.o. q. 4 hours p.r.n. pain, melatonin 1 tab p.o. at bedtime p.r.n. insomnia. ALLERGIES: ADHESIVES, AMOXICILLIN, CEPHALEXIN, CLAVULANIC ACID, HYDROXYCHLOROQUINE, LATEX, ZOLPIDEM, BACITRACIN, AND POLYMYXIN B. REVIEW OF SYSTEMS: As per admitting history and physical. PHYSICAL EXAMINATION: GENERAL: The patient is an elderly white female who appears her stated age. She is awake and alert and oriented to person and place. SKIN: Warm and dry. Turgor is fair. EXTREMITIES: Focusing the exam on her right lower extremity, it is shortened and externally rotated compared to the left. No attempts were made to move the right hip secondary to fracture and her right knee is nontender on palpation as is her right ankle and toes. She has good range of motion of her right ankle and toes at this time and good sensation. Left lower extremity is essentially within normal limits. She is nontender to left hip, left knee and left ankle and has range of motion within normal limits, although somewhat limited due to causing increased pain in her right hip when she tries to move the left lower extremity. Upper extremities are essentially benign at this time. She has a small abrasion that has been taken care of on the right elbow area. She has full range of motion of the upper extremities and has good sensation. Distal pulses are equal bilaterally of the upper and lower extremities. She has some slight venous stasis changes of the lower extremities. There are no gross motor or sensory deficits at this time. DIAGNOSIS: Displaced right femoral neck fracture. PLAN: The patient will require bipolar hemiarthroplasty. She is on Plavix and if she goes anytime soon to the operating room she will have to be likely under general anesthesia. I received a call from Dr. Rodriguez who wants to do further imaging on this patient before clearing her for surgery.
--- NOTE | 2017-01-12 19:10 | Anesthesiology Progress Note ---
Anesthesia Progress Note Date of Service Jan 12, 2017. Progress Notes This is an 86 y/o w female who sustained a fall and consequential right femoral neck fracture,now presenting for a right bipolar hip hemiarthroplasty.PMHx is significant for Hx/o CVA 2009 w/o apparent residual effects(on plavix,last dose was evening of 01/11/2017),HTN,Hyperlipidemia,,Hx/o DVT,anemia,,recent bout of C.Difficile,,osteoporosis,Restless Legs Syndrome,Polymyalgia Rheumatica, spinal stenosis,scoliosis and ASCVD.Discussed anesthesia w/pt and son,all questions answered.Informed consent obtained.Pt will have a general anesthetic, as she has had Plavix 24 hours ago and central neuraxis anesthesia is C/I. ASA 4
[2017-01-12 20:40] VITALS: BP 131/55; PULSE 70; O2SAT 93
[2017-01-12] MEDS: PRAMIPEXOLE DIHYDROCHLORIDE 0.25MG TAB PO SCH (20:41)
[2017-01-12] MEDS: MoRPHine SULFATE CR 15 MG TAB (MS CONTIN) PO SCH (20:41)
[2017-01-12] MEDS: DOCUSATE SODIUM/SENNA 50/8.6MG TAB PO SCH (20:42)
[2017-01-12 23:05] VITALS: BP 125/63; PULSE 79; TEMP 37; O2SAT 91
[2017-01-13] MEDS: ACETAMINOPHEN 500 MG TAB PO SCH ×3 (05:45→22:07)
--- NOTE | 2017-01-13 06:36 | Clinical Documentation Query ---
CLINICAL DOCUMENTATION QUERY 86 year old female who presents to the Emergency Room with complaints of constant right hip pain after ground level fall. In your clinical opinion is this patient being managed for: (x ) Likely traumatic osteoporotic femoral neck fracture in elderly female who has hx of osteoporosis and on chronic prednisone therapy. ( ) Other explanation of clinical findings (Please Explain) ( ) Unable to determine (Please Define) ( ) Need to Discuss ( ) Not Agree The medical record reflects the following clinical findings, treatment, and risk factors. Clinical Indicators: 86-y/o, female, on PO prednisone, fall that is described from ground level. Treatment: Vitamin D, orthopedic consult, and scheduled replacement Risk Factors: Age, hx of known osteoporosis, chronic prednisone therapy, fracture of major long bone from ground level fall. Please clarify and document your clinical opinion in the progress notes and discharge summary. Terms such as "probable", "suspected", "likely", "questionable", "possible", or "still to be ruled out" are acceptable. IF IN AGREEMENT, YOU MUST DOCUMENT ABOVE DIAGNOSTIC STATEMENT IN DAILY PROGRESS NOTES AND DISCHARGE SUMMARY. This document is not part of the patient's record. Thank You, Leonard Natarajan, RN [phone]
[2017-01-13] MEDS ORDERED: BUPIVACAINE 0.5 % 5 MG/1 ML PF 10ML VIAL ONE (07:01)
[2017-01-13 07:32] LABS: BASO % 0.6 %; BASO ABS # 0.03 K/uL (0-0.2); COMPLETE YES; EOS % 4.3 %; HEMATOCRIT 32.3 % (37-47); IG% 0.2 %; LYMPH ABS # 1.06 K/uL (1.2-3.4); MEAN CORPUSCULAR HEMOGLOBIN 31.2 pg (25-34); MEAN CORPUSCULAR HGB CONC 32.8 g/dl (32-36); MEAN PLATELET VOLUME 9.6 fL (7.4-10.4); MONO % 11.1 %; NEUT % 63.8 %; PLATELET COUNT 154 K/uL (130-400)
[2017-01-13] MEDS: LACTOBACILLUS ACIDOPHILUS (FLORANEX) TAB PO SCH ×4 (08:30→20:28)
[2017-01-13 08:33] LABS: BUN/CREATININE RATIO 25.8 (10-20); CALCIUM 9.7 mg/dl (8.5-10.1); CREATININE 0.62 mg/dl (0.60-1.20); POTASSIUM 4.3 mmol/L (3.5-5.1)
[2017-01-13] MEDS: CHOLECALCIFEROL 1000 INTER.UNIT TAB PO SCH (08:58)
[2017-01-13] MEDS: CARVEDILOL 6.25 MG TAB PO SCH ×2 (08:59→20:29)
--- NOTE | 2017-01-13 09:02 | Orthopedic Progress Note ---
Orthopedic Progress Note Date of Service Jan 13, 2017. Subjective Reports: feeling well, complaints (right hip pain off and on but controlled at present), Denies: chest pain, SOB, nausea / vomiting, light headedness Objective calves soft nontender, N/V intact, A&O x3, toes mobile No new changes Date Time Temp Pulse Resp B/P (MAP) Pulse Ox O2 Delivery O2 Flow Rate FiO2 01/13/17 00:00 Room Air 01/12/17 23:05 37.0 79 16 125/63 (83) 91 Room Air 01/12/17 20:40 70 131/55 (80) 93 Room Air 01/12/17 15:00 Room Air 01/12/17 14:58 37.1 81 18 126/63 (84) 95 Room Air 01/12/17 10:13 36.5 83 16 155/71 (99) 93 Room Air 01/12/17 10:00 Room Air 01/12/17 09:35 94 16 150/74 96 01/12/17 09:20 96 Room Air Laboratory Results 24 Hours: Test 01/13/17 06:53 White Blood Count 5.30 K/uL Red Blood Count 3.40 M/uL Hemoglobin 10.6 g/dL Hematocrit 32.3 % Mean Corpuscular Volume 95.0 fL Mean Corpuscular Hemoglobin 31.2 pg Mean Corpuscular Hemoglobin Concent 32.8 g/dl Platelet Count 154 K/uL Mean Platelet Volume 9.6 fL Neutrophils (%) (Auto) 63.8 % Lymphocytes (%) (Auto) 20.0 % Monocytes (%) (Auto) 11.1 % Eosinophils (%) (Auto) 4.3 % Basophils (%) (Auto) 0.6 % Neutrophils # (Auto) 3.38 K/uL Lymphocytes # (Auto) 1.06 K/uL Monocytes # (Auto) 0.59 K/uL Eosinophils # (Auto) 0.23 K/uL Basophils # (Auto) 0.03 K/uL Assessment & Plan Assessment: Right Displaced Femoral Neck Fx h/o CVA on Plavix Plan: Planning for OR today for Bipolar Hemiarthroplasty
[2017-01-13] MEDS: D5W AND NSS 1,000 ML IV SCH ×2 (09:34→20:18)
[2017-01-13] MEDS: MoRPHine SULFATE 2 MG/ML CARP IV PRN (09:35)
[2017-01-13] MEDS ORDERED: VANCOMYCIN INJ 1,000 MG in SODIUM CHLORIDE 0.9% 250ML 250 ML IV SCH (10:30)
[2017-01-13] MEDS ORDERED: FENTANYL CITRATE INJ 50 MCG/1 ML 2 ML VIAL ONE ×3 (11:34→13:59)
[2017-01-13] MEDS ORDERED: MIDAZOLAM HCL 1 MG/ML 2ML VIAL ONE (11:34)
--- NOTE | 2017-01-13 11:35 | History & Physical Bridge Note ---
H&P Re-Evaluation Bridge Note: I have examined the patient, reviewed the History & Physical and in the interval since the performance of the History & Physical I have noted the following changes of clinical significance: No changes noted
[2017-01-13] MEDS ORDERED: VANCOMYCIN 1GM/270ML NSS ONE (11:49)
--- NOTE | 2017-01-13 12:04 | Hospitalist Progress Note ---
Hospitalist Progress Note Date of Service Jan 13, 2017. (Linda Herr PA-C) Subjective Pt evaluation today including: conversation w/ patient, conversation w/ family (son, Antonio), physical exam, chart review, lab review, review of studies Pain: none PO Intake: nothing by mouth Voiding: coello catheter in place The patient was seen and examined this morning. Patient reports feeling well. Her pain is currently a 1 out of 10. She denies any current headache, chest pain, shortness of breath, abdominal pain, nausea, vomiting, diarrhea or constipation. Her son Antonio, is present at bedside who has questioned specifically regarding the length of surgery and where she will be afterwards. Discussion was held regarding uncertain timeframe of surgery and that the patient would be taken to the PACU postsurgically, and to address other questions with orthopedics. Additional Comments: Constitutional: No fever, sweats or chills Eyes: No diplopia, no worsening or blurred vision ENT: normal hearing, no trouble swallowing Respiratory: No cough, sputum, dyspnea at rest or on exertion Cardiovascular: No chest pain, tightness or palpitations Abdomen: No pain, nausea, vomiting, diarrhea or constipation Musculoskeletal: No joint pain, calf pain, swelling Neurologic: No weakness, numbness/tingling, or balance problems Psychiatric: No anxiety or depression Skin: No rash or itch (Linda Herr PA-C) Objective Vital Signs Date Time Temp Pulse Resp B/P (MAP) Pulse Ox O2 Delivery O2 Flow Rate FiO2 01/13/17 08:00 Room Air 01/13/17 00:00 Room Air 01/12/17 23:05 37.0 79 16 125/63 (83) 91 Room Air 01/12/17 20:40 70 131/55 (80) 93 Room Air 01/12/17 15:00 Room Air 01/12/17 14:58 37.1 81 18 126/63 (84) 95 Room Air (Linda Herr PA-C) Physical Exam Notes: General: awake, alert, no apparent distress, comfortable, + thin Head: Normocephalic, atraumatic ENT: PERRL, EOMI, no pharyngeal exudate, mucous membranes moist Chest: Clear to auscultation, on room air, no adventitious breath sounds Cardiac: Regular rate and rhythm, no murmur, no JVD, normal peripheral pulses, good capillary refill Abdominal: NABS x 4 quadrants, soft, nontender to palpation, no rebound, guarding or tenderness Extremities: Normal inspection, no peripheral edema or erythema, calfs nontender to palpation Psych: Normal mood and affect Neuro: No she's in a hospital, cannot name the town or the state, not oriented to time including date or year, patient's son reports that she normally would not be answers to these things. Strength intact in LLE related 10/23. RLE shortened and internally rotated. Speech is clear, no peripheral sensory deficits (Linda Herr, ROSALIA) Laboratory Results Last 24 Hours Test 01/13/17 06:53 White Blood Count 5.30 K/uL Red Blood Count 3.40 M/uL Hemoglobin 10.6 g/dL Hematocrit 32.3 % Mean Corpuscular Volume 95.0 fL Mean Corpuscular Hemoglobin 31.2 pg Mean Corpuscular Hemoglobin Concent 32.8 g/dl Platelet Count 154 K/uL Mean Platelet Volume 9.6 fL Neutrophils (%) (Auto) 63.8 % Lymphocytes (%) (Auto) 20.0 % Monocytes (%) (Auto) 11.1 % Eosinophils (%) (Auto) 4.3 % Basophils (%) (Auto) 0.6 % Neutrophils # (Auto) 3.38 K/uL Lymphocytes # (Auto) 1.06 K/uL Monocytes # (Auto) 0.59 K/uL Eosinophils # (Auto) 0.23 K/uL Basophils # (Auto) 0.03 K/uL RDW Standard Deviation 42.5 fL RDW Coefficient of Variation 12.2 % Immature Granulocyte % (Auto) 0.2 % Immature Granulocyte # (Auto) 0.01 K/uL Sodium Level 136 mmol/L Potassium Level 4.3 mmol/L Chloride Level 103 mmol/L Carbon Dioxide Level 29 mmol/L Anion Gap 4.0 mmol/L Blood Urea Nitrogen 16 mg/dl Creatinine 0.62 mg/dl Est Creatinine Clear Calc Drug Dose 45.9 ml/min Estimated GFR () 94.0 Estimated GFR (Non- 81.1 BUN/Creatinine Ratio 25.8 Random Glucose 108 mg/dl Calcium Level 9.7 mg/dl Iron Level 54 mcg/dl Total Iron Binding Capacity 250 mcg/dl Transferrin 195 mg/dl Transferrin % Saturation 20 % Ferritin 118.0 ng/ml Vitamin B12 Level 413 pg/mL Folate 18.55 ng/mL (Linda Herr PA-C) Assessment and Plan This is a 86 yo F with PMHx of HTN, polymyalgia rheumatica with remote use of chronic prednisone, remote smoking hx, 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 S/p R femoral neck fracture - NPO except meds today in anticipation of surgical procedure later this evening. - Ortho consulted- spoke with Cj Shelton PA-C at bedside- planning on surgical fixation by Dr. Mcguire today at 12:30 - Pain control with oxy 5 mg PO Q4H, morphine sulfate 2 mg IV Q2H, and tylenol 1 g Q8H merari. PT regularly takes morphine sulfate ER 30 mg QPM for chronic back pain, will continue this as well. - Bowel regimen on board w/ dulcolax, mirilax, senna - Hgb remains stable at 10.6, baseline ~13. Follow a.m. labs. - PT/OT ordered -Contact was made with nursing at [facility] and regards to the patient's status yesterday. Discussion was held with orthopedics regarding IV antibiotics and will change clindamycin to vancomycin preoperatively. Hx of C. difficile infection - November 19-2016 s/p Clinda for dental procedure/extraction - Treated with flagyl at that time. Pt denies diarrhea at this time. No current symptoms to suggest that she has an acute flare - Contact precautions placed - Will place on Lactinex QID for now Osteoporosis - Vit D level therapeutic at 41.9 - PT is on denosumab (prolia) 60 mg/mL as outpatient Q6 months HTN - Continue spironolactone 25 mg QAM and coreg 6.25 mg BID Hx of CVA in 2009 - Hold plavix for now, last dose was last evening. Constipation - Bowel regimen as above, last BM yesterday Restless Leg Syndrome - Continue mirapex 0.25 mg QPM. Chronic Back pain - Analgesia as above, continue home regimen of MS ER 30 mg QPM and allow for IV for break through pain. DVT ppx: Teds, SCDs, no chemical anticoagulation in light of surgical procedure CODE STATUS: DNR Disposition: From [facility] to assist with discharge planning, PT/OT evals after surgery (Linda Herr PA-C) Attending Attestation: Pt seen/examined, chart reviewed, care plan d/w GLENYS Herr. I agree with the felton components of her documentation except - aldactone is currently on hold. I saw the patient post-op - she was c/o right leg pain. She was confused and said "I don't feel that good." Son was at bedside with multiple questions. He reports she has lost 20+ pounds in the last 1-2 years. VSS afebrile gen - thin, mild distress due to pain neck - no JVD mouth - MM dry heart - RRR lungs - CTA b/l abd - soft ext - drain, dressings in place right hip; no peripheral edema; pulses 2+ b/l bmp, cbc acceptable from AM labs Fe studies, b12, folate - all normal A/P: 1. right hip Fx s/p ORIF today 2. anemia - no evidence of nutritional deficiencies; repeat cbc in am due to risk of acute blood loss 3. encephalopathy - likely metabolic from dehydration and toxic from pain meds , etc - supportive care 4. hepatic lesions on CT chest - in light of weight loss cannot exclude an underlying malignancy process; I informed son of this incidental finding; due to advanced age a discussion will be needed as an outpatient about whether to pursue more work-up 5. CKD stage 3 - BMP am 6. HTN - cont to hold aldactone 7. h/o stroke - resume plavix post-op son updated Gilles RODRIGUEZ MD (Pranay Rodriguez MD)
[2017-01-13] MEDS ORDERED: PROPOFOL IV EMULSION 10 MG/ML 20 ML VIAL IV ONE (12:44)
[2017-01-13] MEDS ORDERED: ONDANSETRON INJ 2 MG/ML 2 ML VIAL IV PRN (14:00)
[2017-01-13] MEDS ORDERED: EpHEDrine SULFATE INJ 50 MG/ML AMP IV PRN (14:00)
[2017-01-13] MEDS ORDERED: ATROPINE SULFATE 0.1 MG/ML 5ML SYR IV PRN (14:00)
[2017-01-13] MEDS ORDERED: ROCURONIUM BROMIDE 10 MG/ML 5 ML VIAL ONE (14:04)
[2017-01-13] MEDS ORDERED: ESMOLOL HCL 10 MG/ML 10 ML VIAL ONE (14:04)
[2017-01-13] MEDS ORDERED: ONDANSETRON INJ 2 MG/ML 2 ML VIAL ONE (14:04)
[2017-01-13] MEDS ORDERED: LIDOCAINE HCL 2% 2 ML VIAL (20MG/ML) ONE (14:04)
[2017-01-13] MEDS ORDERED: PHENYLEPHRINE HCL INJ 10 MG/ML VIAL ONE (14:19)
[2017-01-13] MEDS ORDERED: EpHEDrine SULFATE 50MG/5ML SYR ONE (14:22)
[2017-01-13] MEDS ORDERED: NEOSTIGMINE METHYLSULFATE 5 MG/5 ML SYR ONE (14:23)
[2017-01-13] MEDS ORDERED: GLYCOPYRROLATE INJ 0.2 MG/ML VIAL ONE (14:23)
--- NOTE | 2017-01-13 15:23 | [facility] Post Operative Brief Note ---
Immediate Operative Summary Operative Date Jan 13, 2017. Pre-Operative Diagnosis Right displaced femoral neck fracture Post-Operative Diagnosis Right displaced femoral neck fracture, chronic trochanteric bursitis, chronic hip abductor tear Procedure(s) Performed Right Bipolar Hip Hemiarthroplasty, Bursectomy, Repair of Abductor Tear Surgeon Dr. Coe Green Building Engineer Surgeon(s) Davis Parra PA-C Estimated Blood Loss 200ml Findings as above Specimens A. Right femoral head Drains 2 hemovac Anesthesia general Complication(s) None Disposition Recovery Room / PACU
[2017-01-13] MEDS ORDERED: ACETAMINOPHEN 1000 MG/100 ML IV IV ONE ×2 (15:41→15:45)
[2017-01-13] MEDS: LABETALOL HCL IV 5 MG/ML 20ML IV PRN ×2 (15:43→15:53)
[2017-01-13] MEDS ORDERED: HYDROmorphone INJ 1 MG/ML SYR IV PRN (15:45)
[2017-01-13] MEDS ORDERED: LABETALOL HCL IV 5 MG/ML 20ML IV PRN (15:45)
[2017-01-13] MEDS: FENTANYL CITRATE INJ 50 MCG/1 ML 2 ML VIAL IV PRN ×2 (16:11→16:19)
--- NOTE | 2017-01-13 16:39 | Anesthesiology Progress Note ---
Anesthesia Post Op Note Date & Time Jan 13, 2017 at 16:39 Vital Signs Pain Intensity: 6.0 Vital Signs Past 12 Hours Date Time Temp Pulse Resp B/P (MAP) Pulse Ox O2 Delivery O2 Flow Rate FiO2 01/13/17 16:30 59 16 163/69 100 Nasal Cannula 2 01/13/17 16:20 56 16 158/65 100 Nasal Cannula 2 01/13/17 16:10 56 16 161/79 100 Nasal Cannula 2 01/13/17 16:00 74 16 163/65 100 Oxymask 10 01/13/17 15:50 74 16 183/81 100 Oxymask 10 01/13/17 15:40 74 16 193/91 100 Oxymask 10 01/13/17 15:34 36.2 74 16 183/92 100 Oxymask 10 01/13/17 08:00 Room Air Notes Mental Status: alert / awake / arousable, participated in evaluation Pt Amnestic to Procedure: Yes Nausea / Vomiting: adequately controlled Pain: adequately controlled Airway Patency, RR, SpO2: stable & adequate BP & HR: stable & adequate Hydration State: stable & adequate Anesthetic Complications: no major complications apparent
--- NOTE | 2017-01-13 16:52 | [facility] Operative Report ---
Operative Report Operative Date Jan 13, 2017. Pre-Operative Diagnosis Right displaced femoral neck fracture Post-Operative Diagnosis same, chronic abductor tear gluteus medius , chronic trochanteric bursitis. Procedure(s) Performed Right hip bipolar hemiarthroplasty with repair chronic gluteus medius tendon tear and trochanteric bursectomy Surgeon Dr. Coe Animal Care Provider Surgeon(s) Davis Parra PA-C Estimated Blood Loss 200ml Findings Displaced femoral neck fracture mild OA acetabulum chronic complex tear gluteus medius with chronic trochanteric bursitis Specimens A. Right femoral head Drains 2 hemovac Anesthesia general Complication(s) None Disposition Recovery Room / PACU Indications Acute right hip fracture Description of Procedure Patient was taken to the operating room this is under general anesthesia. The patient was placed supine on the operating table and the sacral pad. The right hip was sterilely prepped and draped in usual sterile fashion. A Aguilar-type approach was performed to the right hip. A longitudinal incision was made over the hip. The skin was incised sharply and the subcutaneous tissues were divided down to the fascia. Subcutaneous bleeders were cauterized. The fascia rubén was divided longitudinally. The gluteus medius was inspected and this demonstrated a chronic complex abductor tear with the gluteus medius torn away from 50% of the greater trochanter. There is some thin attachment distally proximally there is a split between the intact medius tissue and the torn tissue. The minimus was still intact. Overlying the medius tear was a chronic thickened trochanteric bursitis.. The muscle of the medius was split between its anterior 40% and posterior 60%. The minimus was identified split longitudinally and reflected off of the capsule. An incision was made through the capsule extending up to the acetabulum leaving the acetabular labrum intact. Some degenerative remaining fibers of the medius were resected off of the greater trochanter and the edges of the intact tissue were debrided leaving a cuff of tissue A cuff of of the medius was left on the greater trochanter for repair. The capsule over the neck was released and The vastus lateralis was split for 3 cm. A muscular capsular flap was elevated off of the fracture. Femoral neck fracture demonstrated an oblique neck fracture mid neck level some posterior comminution.. The guide for the [employer] 2 Bridgestream hip system was used. The neck cut was made approximately 15 mm proximal to the lesser trochanter in neutral anteversion. The remnants of the ligamentum teres was resected. The acetabulum demonstrated some mild arthritic changes no deformity. The acetabulum was sized for a size 47 mm component. There was a good suction fit with the trial. The femur was then exposed with flexion external rotation. The femoral canal was prepared with a box osteotome followed by canal reamer followed by sequential broaches up to a size 6 component. This had good fit and fill with the trial. Trial reduction was performed with a 127 neck angle trial +0 neck length 26 mm trial head with a 47 mm bipolar.. The hip was stable through flexion adduction and internal rotation and extension adduction and external rotation. Leg lengths demonstrated few millimeters long but needed for stability. The trials removed and the canal was irrigated copiously with pulsatile lavage solution. The final component was the Accolade 2 size 6 stem 127 neck angle. This was impacted into position with a tight press-fit. The cobalt chromium femoral head size 26 mm +0 was impacted onto the stem and then the 47 mm bipolar head was assembled and snapped onto the head. The hip was reduced to the acetabulum and stability was verified. The wound was copiously irrigated again with pulsatile lavage. 2 Hemovac drains were placed deep into the joint and brought out laterally. The gluteus medius was repaired with 3 #5 fiber wires placed transosseously. Tommy-Chadwick stitch technique was used. Some of the vertical split and some of the bupm-tn-[id number] tendon to tendon repair is performed with [id number] #2 FiberWire and [id number] #1 Vicryl sutures with a complete anatomic repair.. The fascia rubén was repaired with interrupted figure -of-eight #1 Vicryl sutures the subcutaneous tissue closed with 2-0 Vicryl . The skin was closed with ronda . Sterile dressings were applied. My physician assistant tennis coach Davis VERONICA functioned as payroll administrative assistant throughout the surgery performing the following tasks, positioning prepping draping leg position and soft tissue retraction instrument management and assisted in the outer closure and will participate in the postoperative care the patient. The patient tolerated the procedure well. I attest to the content of the Intraoperative Record and any orders documented therein. Any exceptions are noted below.
[2017-01-13 17:10] VITALS: BP 159/71; PULSE 55; TEMP 36.5; O2SAT 98
[2017-01-13 17:42] VITALS: BP 156/62; PULSE 68; TEMP 36.6; O2SAT 100
[2017-01-13 18:10] VITALS: BP 158/69; PULSE 61; TEMP 36.3; O2SAT 99
[2017-01-13] MEDS: OXYCODONE HCL IR 5 MG TAB (IMMEDIATE RELEASE) PO PRN (18:10)
[2017-01-13 19:24] VITALS: BP 126/68; PULSE 66; TEMP 36.9; O2SAT 100
[2017-01-13 20:21] VITALS: BP 124/66; PULSE 70; TEMP 37; O2SAT 96
[2017-01-13] MEDS: PRAMIPEXOLE DIHYDROCHLORIDE 0.25MG TAB PO SCH (20:28)
[2017-01-13] MEDS: DOCUSATE SODIUM/SENNA 50/8.6MG TAB PO SCH (20:29)
[2017-01-13] MEDS: MoRPHine SULFATE CR 15 MG TAB (MS CONTIN) PO SCH (20:33)
[2017-01-13] MEDS: ONDANSETRON INJ 2 MG/ML 2 ML VIAL IV PRN (20:40)
[2017-01-13 23:03] VITALS: BP 105/58; PULSE 83; TEMP 36.9; O2SAT 91
[2017-01-14] VITALS (8 sets, daily range): BP systolic 109–135; BP diastolic 48–68; PULSE 81–105; TEMP 36.9–38.5; O2SAT 90–94
[2017-01-14] MEDS ORDERED: VANCOMYCIN INJ 750 MG in SODIUM CHLORIDE 0.9% 250ML 250 ML IV SCH ×2
[2017-01-14] MEDS: D5W AND NSS 1,000 ML IV SCH ×3 (05:47→23:52)
[2017-01-14] MEDS ORDERED: VANCOMYCIN 1GM/270ML NSS IV ONE (06:00)
[2017-01-14] MEDS: OXYCODONE HCL IR 5 MG TAB (IMMEDIATE RELEASE) PO PRN ×2 (06:07→17:45)
[2017-01-14] MEDS: ACETAMINOPHEN 500 MG TAB PO SCH ×2 (06:07→21:46)
[2017-01-14 06:33] LABS: BASO % 0.3 %; BASO ABS # 0.02 K/uL (0-0.2); EOS % 1.9 %; HEMATOCRIT 25.8 % (37-47); IG% 0.1 %; LYMPH % 12.7 %; LYMPH ABS # 0.95 K/uL (1.2-3.4); MEAN CELL VOLUME 95.2 fL (80-100); MEAN CORPUSCULAR HEMOGLOBIN 31.4 pg (25-34); MEAN CORPUSCULAR HGB CONC 32.9 g/dl (32-36); MEAN PLATELET VOLUME 9.9 fL (7.4-10.4); MONO % 11.8 %; NEUT % 73.2 %; PLATELET COUNT 147 K/uL (130-400); RED BLOOD COUNT 2.71 M/uL (4.2-5.4); WHITE BLOOD COUNT 7.47 K/uL (4.8-10.8)
[2017-01-14 07:08] LABS: CALCIUM 9.4 mg/dl (8.5-10.1); CREATININE 0.54 mg/dl (0.60-1.20); POTASSIUM 4.4 mmol/L (3.5-5.1)
[2017-01-14 07:13] LABS: COMPLETE YES
[2017-01-14] MEDS: CLOPIDOGREL BISULFATE 75 MG TAB PO SCH (08:36)
[2017-01-14] MEDS: LACTOBACILLUS ACIDOPHILUS (FLORANEX) TAB PO SCH ×4 (08:36→20:31)
--- NOTE | 2017-01-14 08:47 | Orthopedic Progress Note ---
Orthopedic Progress Note Date of Service Jan 14, 2017. Subjective Post OP Day: 1 Reports: feeling well, pain controlled w PO medications, Denies: complaints, chest pain, SOB, nausea / vomiting, light headedness, calf pain Additional Notes: Hgb 8.5 Objective calves soft nontender, N/V intact, hip located, capillary refill less than 2 sec., dressing C/D/I, A&O x3, toes mobile Date Time Temp Pulse Resp B/P (MAP) Pulse Ox O2 Delivery O2 Flow Rate FiO2 01/14/17 07:45 36.9 100 14 120/50 (73) 90 Room Air 01/14/17 03:14 36.9 96 16 109/63 (78) 92 Room Air 01/14/17 00:15 Room Air 01/13/17 23:03 36.9 83 16 105/58 (74) 91 Room Air 01/13/17 20:21 37.0 70 16 124/66 (85) 96 Nasal Cannula 2.0 01/13/17 19:24 36.9 66 16 126/68 (87) 100 Nasal Cannula 2.0 01/13/17 18:10 36.3 61 18 158/69 (98) 99 Nasal Cannula 2.0 01/13/17 17:42 36.6 68 16 156/62 (93) 100 Nasal Cannula 2.0 01/13/17 17:10 36.5 55 18 159/71 (100) 98 Nasal Cannula 2.0 01/13/17 17:10 Nasal Cannula 2.0 01/13/17 17:10 Nasal Cannula 2.0 01/13/17 16:50 59 16 165/73 100 Nasal Cannula 2 01/13/17 16:40 36.7 59 16 168/74 100 Nasal Cannula 2 01/13/17 16:30 59 16 163/69 100 Nasal Cannula 2 01/13/17 16:20 56 16 158/65 100 Nasal Cannula 2 01/13/17 16:10 56 16 161/79 100 Nasal Cannula 2 01/13/17 16:00 74 16 163/65 100 Oxymask 10 01/13/17 15:50 74 16 183/81 100 Oxymask 10 01/13/17 15:40 74 16 193/91 100 Oxymask 10 01/13/17 15:34 36.2 74 16 183/92 100 Oxymask 10 Laboratory Results 24 Hours: Test 01/14/17 06:14 White Blood Count 7.47 K/uL Red Blood Count 2.71 M/uL Hemoglobin 8.5 g/dL Hematocrit 25.8 % Mean Corpuscular Volume 95.2 fL Mean Corpuscular Hemoglobin 31.4 pg Mean Corpuscular Hemoglobin Concent 32.9 g/dl Platelet Count 147 K/uL Mean Platelet Volume 9.9 fL Neutrophils (%) (Auto) 73.2 % Lymphocytes (%) (Auto) 12.7 % Monocytes (%) (Auto) 11.8 % Eosinophils (%) (Auto) 1.9 % Basophils (%) (Auto) 0.3 % Neutrophils # (Auto) 5.47 K/uL Lymphocytes # (Auto) 0.95 K/uL Monocytes # (Auto) 0.88 K/uL Eosinophils # (Auto) 0.14 K/uL Basophils # (Auto) 0.02 K/uL Assessment & Plan Assessment: POD #1, Right bipolar hemiarthroplasty h/o CVA on Plavix Plan: PT- gait training w walker, no abd exercises Disposition- Skilled area at [facility] DVT proph- On plavix Acute blood loss anemia as per medicine. Inhouse Planning Pain Management: Morphine, PO Tylenol, Oxy IR DVT Prophylaxis: TEDs, SCDs, other (PLavix) Discharge Planning Discharge Planning: assisted facility
[2017-01-14] MEDS: CHOLECALCIFEROL 1000 INTER.UNIT TAB PO SCH (09:10)
[2017-01-14] MEDS: CARVEDILOL 6.25 MG TAB PO SCH ×2 (09:10→20:38)
--- NOTE | 2017-01-14 09:31 | Anesthesiology Progress Note ---
Anesthesia Post Op Note Date & Time Jan 14, 2017 at 09:29 Vital Signs Vital Signs Past 12 Hours Date Time Temp Pulse Resp B/P (MAP) Pulse Ox O2 Delivery O2 Flow Rate FiO2 01/14/17 07:45 36.9 100 14 120/50 (73) 90 Room Air 01/14/17 03:14 36.9 96 16 109/63 (78) 92 Room Air 01/14/17 00:15 Room Air 01/13/17 23:03 36.9 83 16 105/58 (74) 91 Room Air Notes Mental Status: alert / awake / arousable, participated in evaluation Pt Amnestic to Procedure: Yes Nausea / Vomiting: adequately controlled Pain: adequately controlled Airway Patency, RR, SpO2: stable & adequate BP & HR: stable & adequate Hydration State: stable & adequate Anesthetic Complications: no major complications apparent
--- NOTE | 2017-01-14 10:16 | DIAGNOSTIC IMAGING REPORT ---
RIGHT HIP UNILATERAL 2 VIEWS CLINICAL HISTORY: s/p bipolar letha Right postoperative evaluation COMPARISON: None. DISCUSSION: Total right hip prosthetic in good position. Good contact between metallic prosthetic and underlying bone. Expected soft tissue postoperative change. IMPRESSION: Anatomic alignment status post total right hip replacement. The above report was generated using voice recognition software. It may contain grammatical, syntax or spelling errors. Electronically signed by: Davis Blanc M.D. 01/14/2017 10:14 AM Dictated Date/Time: 01/14/2017 10:14 AM
--- NOTE | 2017-01-14 10:51 | Hospitalist Progress Note ---
Hospitalist Progress Note Date of Service Jan 14, 2017. (Linda Herr PA-C) Subjective Pt evaluation today including: conversation w/ patient, physical exam, chart review, lab review, review of studies Pain: None PO Intake: Good Voiding: no voiding problems The patient was seen and examined this morning. Pt reports no pain, she falls asleep easily while I'm at bedside but is able to answer all questions appropriately. She slept well overnight. Ate breakfast without difficulty. No chest pain, shortness of breath, nausea, numbness, tingling, hip pain, fever, chills, sweats. Constitutional: No fever, No chills, No sweats, No fatigue Eyes: No redness, No diplopia ENT: No trouble swallowing, No problem reported Respiratory: No shortness of breath, No dyspnea at rest Cardiovascular: No chest pain, No palpitations Abdomen: No pain, No nausea, No vomiting, No diarrhea, No constipation Musculoskeletal: No joint pain, No muscle pain, No swelling, No calf pain Female : No dysuria Neurologic: No weakness, No numbness/tingling Endo: No fatigue Skin: No rash, No itch (Linda Herr PA-C) Objective Vital Signs Date Time Temp Pulse Resp B/P (MAP) Pulse Ox O2 Delivery O2 Flow Rate FiO2 01/14/17 07:45 36.9 100 14 120/50 (73) 90 Room Air 01/14/17 03:14 36.9 96 16 109/63 (78) 92 Room Air 01/14/17 00:15 Room Air 01/13/17 23:03 36.9 83 16 105/58 (74) 91 Room Air 01/13/17 20:21 37.0 70 16 124/66 (85) 96 Nasal Cannula 2.0 01/13/17 19:24 36.9 66 16 126/68 (87) 100 Nasal Cannula 2.0 01/13/17 18:10 36.3 61 18 158/69 (98) 99 Nasal Cannula 2.0 01/13/17 17:42 36.6 68 16 156/62 (93) 100 Nasal Cannula 2.0 01/13/17 17:10 36.5 55 18 159/71 (100) 98 Nasal Cannula 2.0 01/13/17 17:10 Nasal Cannula 2.0 01/13/17 17:10 Nasal Cannula 2.0 01/13/17 16:50 59 16 165/73 100 Nasal Cannula 2 01/13/17 16:40 36.7 59 16 168/74 100 Nasal Cannula 2 01/13/17 16:30 59 16 163/69 100 Nasal Cannula 2 01/13/17 16:20 56 16 158/65 100 Nasal Cannula 2 01/13/17 16:10 56 16 161/79 100 Nasal Cannula 2 01/13/17 16:00 74 16 163/65 100 Oxymask 10 01/13/17 15:50 74 16 183/81 100 Oxymask 10 01/13/17 15:40 74 16 193/91 100 Oxymask 10 01/13/17 15:34 36.2 74 16 183/92 100 Oxymask 10 (Linda Herr PA-C) Physical Exam General Appearance: WD/WN, no apparent distress, + thin, + pertinent finding ( sleepy) Eyes: PERRL, EOMI ENT: hearing grossly normal, pharynx normal Neck: supple, no JVD Respiratory/Chest: lungs clear, normal breath sounds, no respiratory distress, no accessory muscle use Cardiovascular: no murmur, + tachycardia (slightly, HR in 80s ), + pertinent finding (regular rhythm) Abdomen: normal bowel sounds, non tender, soft Extremities: non-tender, no pedal edema, no calf tenderness, + pertinent finding (R hip dressing is C/D/I) Neurologic/Psychiatric: no motor/sensory deficits, normal mood/affect, oriented x 3 Skin: normal color, warm/dry (Linda Herr PA-C) Laboratory Results Last 24 Hours Test 01/14/17 06:14 White Blood Count 7.47 K/uL Red Blood Count 2.71 M/uL Hemoglobin 8.5 g/dL Hematocrit 25.8 % Mean Corpuscular Volume 95.2 fL Mean Corpuscular Hemoglobin 31.4 pg Mean Corpuscular Hemoglobin Concent 32.9 g/dl Platelet Count 147 K/uL Mean Platelet Volume 9.9 fL Neutrophils (%) (Auto) 73.2 % Lymphocytes (%) (Auto) 12.7 % Monocytes (%) (Auto) 11.8 % Eosinophils (%) (Auto) 1.9 % Basophils (%) (Auto) 0.3 % Neutrophils # (Auto) 5.47 K/uL Lymphocytes # (Auto) 0.95 K/uL Monocytes # (Auto) 0.88 K/uL Eosinophils # (Auto) 0.14 K/uL Basophils # (Auto) 0.02 K/uL RDW Standard Deviation 42.4 fL RDW Coefficient of Variation 12.3 % Immature Granulocyte % (Auto) 0.1 % Immature Granulocyte # (Auto) 0.01 K/uL Red Blood Cell Morphology Unremarkable Sodium Level 134 mmol/L Potassium Level 4.4 mmol/L Chloride Level 103 mmol/L Carbon Dioxide Level 27 mmol/L Anion Gap 4.0 mmol/L Blood Urea Nitrogen 10 mg/dl Creatinine 0.54 mg/dl Est Creatinine Clear Calc Drug Dose 52.7 ml/min Estimated GFR () 98.3 Estimated GFR (Non- 84.8 BUN/Creatinine Ratio 18.0 Random Glucose 125 mg/dl Calcium Level 9.4 mg/dl (Linda Herr, ROSALIA) Assessment and Plan This is a 86 yo F with PMHx of HTN, polymyalgia rheumatica with remote use of chronic prednisone, remote smoking hx, 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 Osteoporotic R femoral neck fracture - S/p surgical fixation by Dr. Coe on 01/14, POD # 1 - Pain control with oxy 5 mg PO Q4H, morphine sulfate 2 mg IV Q2H, and tylenol 1 g Q8H merari. PT regularly takes morphine sulfate ER 30 mg QPM for chronic back pain. - Bowel regimen on board w/ dulcolax, mirilax, senna - Hgb dropped from 10.6 to 8.5, no transfusion needed at this time. She has blood consent in case. Baseline ~13. Follow a.m. labs. - PT/OT ordered Hx of C. difficile infection - November 19-2016 s/p Clinda for dental procedure/extraction - Treated with flagyl at that time. Pt denies diarrhea at this time. No current symptoms to suggest that she has an acute flare - Contact precautions placed - Will place on Lactinex QID for now Osteoporosis - Vit D level therapeutic at 41.9 - PT is on denosumab (prolia) 60 mg/mL as outpatient Q6 months HTN - Continue spironolactone 25 mg QAM and coreg 6.25 mg BID Hx of CVA in 2009 - Restart plavix 01/14 Constipation - Bowel regimen as above, last BM was 01/12 Restless Leg Syndrome - Continue mirapex 0.25 mg QPM. Chronic Back pain - Analgesia as above, continue home regimen of MS ER 30 mg QPM and allow for IV for break through pain. DVT ppx: Teds, SCDs, resume plavix CODE STATUS: DNR Disposition: From [facility] to assist with discharge planning, PT/OT evals today (Linda Herr, ROSALIA) PA Physician Supervision Note: I interviewed and examined the patient. Discussed with Linda Herr PAC and agree with findings and plan as documented in the note. Any exceptions or clarifications are listed here: None PT is doing well but did have temp and associated delerium 01/14. inital exam and ua negative, wound inspection is also without suspect. No diarrhea continue to have clinical surveillance vitals with temp to 38.5 car is reg lungs are clear abdomen is soft and non tender right surgical wound is soft non tender and no warmth or fluctuance Fever of undetermined source follow cultures and clinical signs, consider c diff if diarrhea as has history of same Documented By: Prince Albarran (Prince Albarran M.D.)
[2017-01-14] MEDS ORDERED: NURSING VERBAL MED ORDER STA (13:27)
[2017-01-14] MEDS ORDERED: ACETAMINOPHEN 1000 MG/100 ML IV IV ONE (13:45)
--- NOTE | 2017-01-14 14:03 | DIAGNOSTIC IMAGING REPORT ---
SINGLE VIEW CHEST CLINICAL HISTORY: Fever. FINDINGS: An AP, portable, upright chest radiograph is compared to chest x-ray and chest CT dated 01/12/2017. The examination is severely degraded by portable technique and patient rotation. The heart is enlarged and there is atherosclerotic calcification of the thoracic aorta. The pulmonary vasculature is noncongested. Chronic interstitial thickening is unchanged. There is left basilar atelectasis. No airspace consolidation is seen typical for pneumonia and there is no large pleural effusion. No pneumothorax is seen. The skeletal structures are osteopenic. Advanced degenerative change and severe scoliosis are noted in the thoracic spine. Intrathecal leads project over the midthoracic region. IMPRESSION: Cardiomegaly with no acute cardiopulmonary abnormality. There has been no significant change from 01/12/2017. Electronically signed by: Ronaldo Kirkland M.D. 01/14/2017 2:02 PM Dictated Date/Time: 01/14/2017 2:00 PM
[2017-01-14 14:14] LABS: URINE APPEARANCE CLEAR (CLEAR); URINE BILIRUBIN NEG (NEG); URINE COLOR YELLOW; URINE NITRITE NEG (NEG); URINE SPECIFIC GRAVITY 1.026 (1.000-1.030); UROBILINOGEN NEG (NEG)
[2017-01-14 14:16] LABS: MANUAL MICROSCOPIC REQUIRED? NO; REVIEW REQ? NO
[2017-01-14] MEDS: MoRPHine SULFATE CR 15 MG TAB (MS CONTIN) PO SCH (20:34)
[2017-01-14] MEDS: DOCUSATE SODIUM/SENNA 50/8.6MG TAB PO SCH (20:35)
[2017-01-14] MEDS: PRAMIPEXOLE DIHYDROCHLORIDE 0.25MG TAB PO SCH (20:35)
[2017-01-14] MEDS: MoRPHine SULFATE 2 MG/ML CARP IV PRN (21:43)
[2017-01-15] VITALS (20 sets, daily range): BP systolic 106–152; BP diastolic 52–74; PULSE 66–97; TEMP 36.4–37.4; O2SAT 90–96
[2017-01-15] MEDS: ACETAMINOPHEN 500 MG TAB PO SCH ×3 (05:32→20:41)
[2017-01-15 06:37] LABS: BASO % 0.2 %; BASO ABS # 0.02 K/uL (0-0.2); EOS % 0.7 %; HEMATOCRIT 21.1 % (37-47); IG% 0.4 %; LYMPH ABS # 0.94 K/uL (1.2-3.4); MEAN CELL VOLUME 94.6 fL (80-100); MEAN CORPUSCULAR HEMOGLOBIN 32.7 pg (25-34); MEAN CORPUSCULAR HGB CONC 34.6 g/dl (32-36); MEAN PLATELET VOLUME 9.6 fL (7.4-10.4); MONO % 11.3 %; NEUT % 78.4 %; PLATELET COUNT 144 K/uL (130-400); RED BLOOD COUNT 2.23 M/uL (4.2-5.4); WHITE BLOOD COUNT 10.49 K/uL (4.8-10.8)
[2017-01-15 07:24] LABS: COMPLETE YES
--- NOTE | 2017-01-15 07:54 | Orthopedic Progress Note ---
Orthopedic Progress Note Date of Service Jan 15, 2017. Subjective Post OP Day: 2 Reports: feeling well, pain controlled w PO medications, Denies: complaints, chest pain, SOB, nausea / vomiting, light headedness, calf pain Additional Notes: Hgb 7.3 Objective calves soft nontender, N/V intact, capillary refill less than 2 sec., dressing C /D/I, A&O x3, toes mobile Date Time Temp Pulse Resp B/P (MAP) Pulse Ox O2 Delivery O2 Flow Rate FiO2 01/15/17 07:43 Room Air 01/14/17 23:45 Room Air 01/14/17 23:00 37.0 92 18 135/63 (87) 90 Room Air 01/14/17 15:23 37.4 105 18 115/68 (84) 94 Room Air 01/14/17 15:20 Room Air 01/14/17 14:26 37.8 01/14/17 14:05 37.3 81 16 120/59 (79) 93 Room Air 01/14/17 13:00 38.5 98 18 123/48 (73) 92 Room Air 01/14/17 10:56 90 Room Air Laboratory Results 24 Hours: Test 01/15/17 06:05 White Blood Count 10.49 K/uL Red Blood Count 2.23 M/uL Hemoglobin 7.3 g/dL Hematocrit 21.1 % Mean Corpuscular Volume 94.6 fL Mean Corpuscular Hemoglobin 32.7 pg Mean Corpuscular Hemoglobin Concent 34.6 g/dl Platelet Count 144 K/uL Mean Platelet Volume 9.6 fL Neutrophils (%) (Auto) 78.4 % Lymphocytes (%) (Auto) 9.0 % Monocytes (%) (Auto) 11.3 % Eosinophils (%) (Auto) 0.7 % Basophils (%) (Auto) 0.2 % Neutrophils # (Auto) 8.23 K/uL Lymphocytes # (Auto) 0.94 K/uL Monocytes # (Auto) 1.19 K/uL Eosinophils # (Auto) 0.07 K/uL Basophils # (Auto) 0.02 K/uL Assessment & Plan Assessment: POD #2, Right bipolar hemiarthroplasty h/o CVA on Plavix Acute blood loss anemia Plan: PT- gait training w walker, no abd exercises Disposition- Skilled area at [facility] when stable DVT proph- On plavix Acute blood loss anemia, being transfused today. Inhouse Planning Pain Management: Morphine, PO Tylenol, Oxy IR DVT Prophylaxis: TEDs, SCDs, other (PLavix) Discharge Planning Discharge Planning: longterm facility
--- NOTE | 2017-01-15 08:12 | Hospitalist Progress Note ---
Hospitalist Progress Note Date of Service Jan 15, 2017. (Linda Herr PA-C) Subjective Pt evaluation today including: conversation w/ patient, physical exam, chart review, lab review, review of studies Pain: None PO Intake: Good Voiding: coello catheter in place Pt requiring 2 units of PRBCs for hemoglobin dropped to 7.3 this morning. Blood was infusing at bedside when I examine the patient. She reports that she is doing well. She cannot recall events from yesterday, only that she slept a lot. She denies any pain, hip pain, and has not worked with physical therapy yet. She ate without difficulty. Patient has not yet had a BM, but is passing small amounts of gas. Additional Comments: Constitutional: No fever, sweats or chills Eyes: No diplopia, no worsening or blurred vision ENT: normal hearing, no trouble swallowing Respiratory: No cough, sputum, dyspnea at rest or on exertion Cardiovascular: No chest pain, tightness or palpitations Abdomen: No pain, nausea, vomiting, diarrhea, + last BM prior to surgery : +coello catheter in place Musculoskeletal: No joint pain, calf pain, swelling Neurologic: No weakness, numbness/tingling, or balance problems Skin: No rash or itch (Linda Herr PA-C) Objective Vital Signs Date Time Temp Pulse Resp B/P (MAP) Pulse Ox O2 Delivery O2 Flow Rate FiO2 01/15/17 08:00 37.4 92 18 122/56 (78) 95 Room Air 01/15/17 07:43 Room Air 01/14/17 23:45 Room Air 01/14/17 23:00 37.0 92 18 135/63 (87) 90 Room Air 01/14/17 15:23 37.4 105 18 115/68 (84) 94 Room Air 01/14/17 15:20 Room Air 01/14/17 14:26 37.8 01/14/17 14:05 37.3 81 16 120/59 (79) 93 Room Air 01/14/17 13:00 38.5 98 18 123/48 (73) 92 Room Air 01/14/17 10:56 90 Room Air (Linda Herr PA-C) Physical Exam Notes: General Appearance: WD/WN, no apparent distress, + thin, awake and alert Eyes: PERRL, EOMI ENT: hearing grossly normal, pharynx normal Neck: supple, no JVD Respiratory/Chest: lungs clear, normal breath sounds, no respiratory distress, no accessory muscle use Cardiovascular: NSR, no murmur, rubs or gallops Abdomen: normal bowel sounds, non tender, soft Extremities: non-tender, no pedal edema, no calf tenderness, + pertinent finding (R hip dressing is C/D/I) Neurologic/Psychiatric: no motor/sensory deficits, normal mood/affect, oriented x 3 Skin: normal color, warm/dry (Linda Herr PA-C) Laboratory Results Last 24 Hours Test 01/14/17 13:35 01/15/17 06:05 Urine Color YELLOW Urine Appearance CLEAR Urine pH 5.0 Urine Specific [place] 1.026 Urine Protein NEG Urine Glucose (UA) NEG Urine Ketones NEG Urine Occult Blood NEG Urine Nitrite NEG Urine Bilirubin NEG Urine Urobilinogen NEG Urine Leukocyte Esterase NEG White Blood Count 10.49 K/uL Red Blood Count 2.23 M/uL Hemoglobin 7.3 g/dL Hematocrit 21.1 % Mean Corpuscular Volume 94.6 fL Mean Corpuscular Hemoglobin 32.7 pg Mean Corpuscular Hemoglobin Concent 34.6 g/dl Platelet Count 144 K/uL Mean Platelet Volume 9.6 fL Neutrophils (%) (Auto) 78.4 % Lymphocytes (%) (Auto) 9.0 % Monocytes (%) (Auto) 11.3 % Eosinophils (%) (Auto) 0.7 % Basophils (%) (Auto) 0.2 % Neutrophils # (Auto) 8.23 K/uL Lymphocytes # (Auto) 0.94 K/uL Monocytes # (Auto) 1.19 K/uL Eosinophils # (Auto) 0.07 K/uL Basophils # (Auto) 0.02 K/uL RDW Standard Deviation 42.0 fL RDW Coefficient of Variation 12.3 % Immature Granulocyte % (Auto) 0.4 % Immature Granulocyte # (Auto) 0.04 K/uL Red Blood Cell Morphology Unremarkable (Linda Herr PA-C) Assessment and Plan This is a 86 yo F with PMHx of HTN, polymyalgia rheumatica with remote use of chronic prednisone, remote smoking hx, 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 Osteoporotic R femoral neck fracture - S/p surgical fixation by Dr. Coe on 01/14, POD # 2 - Pain control with oxy 5 mg PO Q4H prn, morphine sulfate 2 mg IV Q2H prn, and tylenol 1 g Q8H merari. PT regularly takes morphine sulfate ER 30 mg QPM for chronic back pain. - Bowel regimen on board w/ dulcolax, mirilax, senna - no BM yet - PT/OT ordered Acute blood loss anemia - Hgb dropped from 10.6 to 7.3 Baseline ~13. - Transfuse 2 U PRBCs 01/15. Pt appears better than yesterday as she is awake and oriented to place, although does not recall she states college. Hx of C. difficile infection - November 19-2016 s/p Clinda for dental procedure/extraction - Treated with flagyl at that time. Pt denies diarrhea at this time. No current symptoms to suggest that she has an acute flare - Contact precautions placed - Will place on Lactinex QID for now Osteoporosis - Vit D level therapeutic at 41.9 - PT is on denosumab (prolia) 60 mg/mL as outpatient Q6 months HTN - Continue spironolactone 25 mg QAM and coreg 6.25 mg BID Hx of CVA in 2009 - Restart plavix 01/14 Constipation - Bowel regimen as above, last BM was 01/12 - If not BM by tonight order dulcolax suppository. Restless Leg Syndrome - Continue mirapex 0.25 mg QPM. Chronic Back pain - Analgesia as above, continue home regimen of MS ER 30 mg QPM and allow for IV for break through pain. DVT ppx: Teds, SCDs, resume plavix CODE STATUS: DNR Disposition: From [facility], planned for discharge to [facility], likely within 1 day (Linda Herr, ROSALIA) PA Physician Supervision Note: I interviewed and examined the patient. Discussed with Linda Herr PAC and agree with findings and plan as documented in the note. Any exceptions or clarifications are listed here: None PT is doing well but did have temp and associated delerium 01/14 without identified source and no recurrence. found to have acute blood loss anemia with transfusion 2 u prbc 01/15 vitals with no further temperature car is reg lungs are clear abdomen remains soft and non tender right surgical wound is not abnormal transfuse for anemia, continue vigilance for source of fever Documented By: Prince Albarran (Prince Albarran M.D.)
[2017-01-15] MEDS: D5W AND NSS 1,000 ML IV SCH (09:31)
[2017-01-15] MEDS: CLOPIDOGREL BISULFATE 75 MG TAB PO SCH (09:31)
[2017-01-15] MEDS: CARVEDILOL 6.25 MG TAB PO SCH ×2 (09:31→20:39)
[2017-01-15] MEDS: LACTOBACILLUS ACIDOPHILUS (FLORANEX) TAB PO SCH ×4 (09:31→19:37)
[2017-01-15] MEDS: CHOLECALCIFEROL 1000 INTER.UNIT TAB PO SCH (09:32)
[2017-01-15] MEDS: PANTOprazole SOD 40 MG TAB PO SCH ×2 (09:47→20:39)
[2017-01-15] MEDS: MoRPHine SULFATE CR 15 MG TAB (MS CONTIN) PO SCH (20:39)
[2017-01-15] MEDS: PRAMIPEXOLE DIHYDROCHLORIDE 0.25MG TAB PO SCH (20:39)
[2017-01-15] MEDS: DOCUSATE SODIUM/SENNA 50/8.6MG TAB PO SCH (20:40)
[2017-01-15] MEDS: OXYCODONE HCL IR 5 MG TAB (IMMEDIATE RELEASE) PO PRN (21:20)
[2017-01-16] MEDS: D5W AND NSS 1,000 ML IV SCH ×2 (00:12→13:15)
[2017-01-16] MEDS: ACETAMINOPHEN 500 MG TAB PO SCH ×2 (05:23→13:23)
[2017-01-16 07:00] VITALS: BP 143/69; PULSE 77; TEMP 36.9; O2SAT 96
--- NOTE | 2017-01-16 07:44 | Orthopedic Progress Note ---
Orthopedic Progress Note Date of Service Jan 16, 2017. Subjective Post OP Day: 3 Objective calves soft nontender, N/V intact, capillary refill less than 2 sec., dressing C /D/I, incision C/D/I, A&O x3, toes mobile Date Time Temp Pulse Resp B/P (MAP) Pulse Ox O2 Delivery O2 Flow Rate FiO2 01/16/17 07:00 36.9 77 16 143/69 (93) 96 Room Air 01/15/17 22:53 37.0 93 18 134/68 (90) 94 Room Air 01/15/17 20:36 82 122/66 (84) 01/15/17 19:55 Room Air 01/15/17 16:56 37.1 97 18 122/62 95 01/15/17 16:33 37.1 96 18 119/62 96 01/15/17 15:45 36.4 92 17 118/60 94 0.0 01/15/17 15:38 36.8 96 18 121/56 94 01/15/17 15:20 36.9 68 18 124/61 01/15/17 14:30 36.4 66 16 151/69 90 01/15/17 14:15 37.3 73 18 152/67 96 01/15/17 13:55 36.6 71 18 152/70 01/15/17 13:27 36.6 71 18 152/70 96 01/15/17 13:00 36.5 70 18 138/74 94 01/15/17 12:08 01/15/17 12:00 36.8 90 18 106/52 94 01/15/17 11:30 36.8 91 18 124/64 92 01/15/17 11:00 37.0 92 18 127/66 93 01/15/17 10:45 37.0 92 18 139/68 96 01/15/17 10:29 36.9 92 18 130/66 01/15/17 08:36 95 Room Air 01/15/17 08:00 37.4 92 18 122/56 (78) 95 Room Air Assessment & Plan Assessment: POD #3, Right bipolar hemiarthroplasty h/o CVA on Plavix Acute blood loss anemia Plan: PT- gait training w walker, no abd exercises Disposition- Skilled area at [facility] when stable DVT proph- On plavix Transfused yesterday, will order CBC for this AM Ortho stable, will sign off for now, thank you. Inhouse Planning Pain Management: Morphine, PO Tylenol, Oxy IR DVT Prophylaxis: TEDs, SCDs, other (PLavix) Discharge Planning Discharge Planning: assisted facility
--- NOTE | 2017-01-16 07:52 | Consultant Recommendations ---
Net Coordinator Recommendations Date of Service Jan 16, 2017. Net Coordinator Recommendations Right bipolar hemiarthroplasty with abductor muscle repair 01/13/17 s/p hip fracture. WBAT with walker. PT/ OT- For safe gait training with walker only, NO abduction exercises due to abductor repair. Hip precautions. DVT proph- per PCP already on Plavix. Daily dressing changes to Right hip with wound checks. May shower briefly, do not submerge incision underwater. Follow up with Dr. Coe 12-14 days post op, call [phone] for appt.
[2017-01-16 08:13] LABS: BASO % 0.3 %; BASO ABS # 0.03 K/uL (0-0.2); EOS % 3.5 %; IG% 0.2 %; LYMPH % 14.5 %; LYMPH ABS # 1.27 K/uL (1.2-3.4); MEAN CELL VOLUME 90.6 fL (80-100); MEAN CORPUSCULAR HEMOGLOBIN 30.8 pg (25-34); MEAN PLATELET VOLUME 9.5 fL (7.4-10.4); MONO % 11.4 %; NEUT % 70.1 %; PLATELET COUNT 139 K/uL (130-400); RED BLOOD COUNT 2.76 M/uL (4.2-5.4); WHITE BLOOD COUNT 8.77 K/uL (4.8-10.8)
[2017-01-16 09:01] LABS: COMPLETE YES
[2017-01-16] MEDS: OXYCODONE HCL IR 5 MG TAB (IMMEDIATE RELEASE) PO PRN ×2 (09:14→13:23)
[2017-01-16] MEDS: CLOPIDOGREL BISULFATE 75 MG TAB PO SCH (09:15)
[2017-01-16] MEDS: LACTOBACILLUS ACIDOPHILUS (FLORANEX) TAB PO SCH ×2 (09:15→12:07)
[2017-01-16] MEDS: PANTOprazole SOD 40 MG TAB PO SCH (09:15)
[2017-01-16] MEDS: CARVEDILOL 6.25 MG TAB PO SCH (09:15)
[2017-01-16] MEDS: CHOLECALCIFEROL 1000 INTER.UNIT TAB PO SCH (09:15)
[2017-01-16 09:20] LABS: BUN/CREATININE RATIO 24.2 (10-20); CALCIUM 9.3 mg/dl (8.5-10.1); CREATININE 0.39 mg/dl (0.60-1.20); POTASSIUM 3.6 mmol/L (3.5-5.1)
--- NOTE | 2017-01-16 10:00 | Hospitalist Progress Note ---
Hospitalist Progress Note Date of Service Jan 16, 2017. Subjective Pt evaluation today including: conversation w/ patient, conversation w/ family , physical exam, chart review, lab review Pain: Minimal with hip movement PO Intake: Good Voiding: coello catheter in place The patient was seen and examined this morning. Pt reports doing well, she is eating and drinking without issues. She has not gotten up to walk with PT/OT yet today. She denies any feeling of lightheadedness or dizziness, no palpitations or flutter. Additional Comments: Constitutional: No fever, sweats or chills Eyes: No diplopia, no worsening or blurred vision ENT: normal hearing, no trouble swallowing Respiratory: No cough, sputum, dyspnea at rest or on exertion Cardiovascular: No chest pain, tightness or palpitations Abdomen: No pain, nausea, vomiting, diarrhea, + last BM prior to surgery : +coello catheter in place Musculoskeletal: No joint pain, calf pain, swelling Neurologic: No weakness, numbness/tingling, or balance problems Skin: No rash or itch Objective Vital Signs Date Time Temp Pulse Resp B/P (MAP) Pulse Ox O2 Delivery O2 Flow Rate FiO2 01/16/17 07:00 36.9 77 16 143/69 (93) 96 Room Air 01/15/17 22:53 37.0 93 18 134/68 (90) 94 Room Air 01/15/17 20:36 82 122/66 (84) 01/15/17 19:55 Room Air 01/15/17 16:56 37.1 97 18 122/62 95 01/15/17 16:33 37.1 96 18 119/62 96 01/15/17 15:45 36.4 92 17 118/60 94 0.0 01/15/17 15:38 36.8 96 18 121/56 94 01/15/17 15:20 36.9 68 18 124/61 01/15/17 14:30 36.4 66 16 151/69 90 01/15/17 14:15 37.3 73 18 152/67 96 01/15/17 13:55 36.6 71 18 152/70 01/15/17 13:27 36.6 71 18 152/70 96 01/15/17 13:00 36.5 70 18 138/74 94 01/15/17 12:08 01/15/17 12:00 36.8 90 18 106/52 94 01/15/17 11:30 36.8 91 18 124/64 92 01/15/17 11:00 37.0 92 18 127/66 93 01/15/17 10:45 37.0 92 18 139/68 96 01/15/17 10:29 36.9 92 18 130/66 Physical Exam Notes: General Appearance: WD/WN, no apparent distress, + thin, awake and alert Eyes: PERRL, EOMI ENT: hearing grossly normal, pharynx normal Neck: supple, no JVD Respiratory/Chest: lungs clear, on room air, normal breath sounds, no respiratory distress, no accessory muscle use Cardiovascular: NSR, no murmur, rubs or gallops Abdomen: normal bowel sounds, non tender, soft Extremities: non-tender, no pedal edema, no calf tenderness, + pertinent finding (R hip dressing is C/D/I) Neurologic/Psychiatric: no motor/sensory deficits, normal mood/affect, oriented x 3 Skin: normal color, warm/dry Laboratory Results Last 24 Hours Test 01/16/17 07:58 White Blood Count 8.77 K/uL Red Blood Count 2.76 M/uL Hemoglobin 8.5 g/dL Hematocrit 25.0 % Mean Corpuscular Volume 90.6 fL Mean Corpuscular Hemoglobin 30.8 pg Mean Corpuscular Hemoglobin Concent 34.0 g/dl Platelet Count 139 K/uL Mean Platelet Volume 9.5 fL Neutrophils (%) (Auto) 70.1 % Lymphocytes (%) (Auto) 14.5 % Monocytes (%) (Auto) 11.4 % Eosinophils (%) (Auto) 3.5 % Basophils (%) (Auto) 0.3 % Neutrophils # (Auto) 6.14 K/uL Lymphocytes # (Auto) 1.27 K/uL Monocytes # (Auto) 1.00 K/uL Eosinophils # (Auto) 0.31 K/uL Basophils # (Auto) 0.03 K/uL RDW Standard Deviation 50.2 fL RDW Coefficient of Variation 15.2 % Immature Granulocyte % (Auto) 0.2 % Immature Granulocyte # (Auto) 0.02 K/uL Red Blood Cell Morphology Unremarkable Sodium Level 137 mmol/L Potassium Level 3.6 mmol/L Chloride Level 108 mmol/L Carbon Dioxide Level 28 mmol/L Anion Gap 1.0 mmol/L Blood Urea Nitrogen 9 mg/dl Creatinine 0.39 mg/dl Est Creatinine Clear Calc Drug Dose 73.0 ml/min Estimated GFR () 109.5 Estimated GFR (Non- 94.4 BUN/Creatinine Ratio 24.2 Random Glucose 101 mg/dl Calcium Level 9.3 mg/dl Assessment and Plan This is a 86 yo F with PMHx of HTN, polymyalgia rheumatica with remote use of chronic prednisone, remote smoking hx, Hx CVA in 2009 on plavix, osteoporosis and chronic low back pain who presented to the ED s/p a fall at 0645 on 01/13 sustained a R femoral neck fracture, now s/p fixation. Osteoporotic R femoral neck fracture - S/p surgical fixation by Dr. Coe on 01/13, POD # 3 - Pain control with oxy 5 mg PO Q4H prn, morphine sulfate 2 mg IV Q2H prn, and tylenol 1 g Q8H merari. PT regularly takes morphine sulfate ER 30 mg QPM for chronic back pain. - Bowel regimen on board w/ dulcolax, mirilax, senna - still no BM yet, nursing to administer prns today - PT/OT ordered - assess today - Attempt to pull coello if does well with PT/OT today. Acute blood loss anemia - Hgb dropped from increased to 8.5, Baseline ~13. - Transfuse 2 U PRBCs 01/15, with 1 g increase. Hx of C. difficile infection - November 19-2016 s/p Clinda for dental procedure/extraction - Treated with flagyl at that time. Pt denies diarrhea at this time. No current symptoms to suggest that she has an acute flare - Contact precautions placed - Continue on Lactinex QID for now Osteoporosis - Vit D level therapeutic at 41.9 - PT is on denosumab (prolia) 60 mg/mL as outpatient Q6 months HTN - Continue spironolactone 25 mg QAM and coreg 6.25 mg BID Hx of CVA in 2009 - Restart plavix 01/14 Constipation - Bowel regimen as above, last BM was 01/12 - Prns to be administered today by nursing. Restless Leg Syndrome - Continue mirapex 0.25 mg QPM. Chronic Back pain - Analgesia as above, continue home regimen of MS ER 30 mg QPM and allow for IV for break through pain. DVT ppx: Teds, SCDs, resume plavix CODE STATUS: DNR Disposition: From [facility], planned for discharge to [facility], likely within 1 day, need PT/OT today
[2017-01-16 11:32] VITALS: BP 126/71; PULSE 95; TEMP 36.2; O2SAT 95
[2017-01-16] MEDS: MoRPHine SULFATE 2 MG/ML CARP IV PRN (12:03)
[2017-01-16] MEDS ORDERED: DLCS PR (12:11)
[2017-01-16] MEDS ORDERED: ACET-24 PO (12:11)
[2017-01-16] MEDS ORDERED: PRT40 PO (12:11)
[2017-01-16] MEDS ORDERED: SENN8.6T7 PO (12:11)
[2017-01-16] MEDS ORDERED: MRLP17X PO (12:11)
--- NOTE | 2017-01-16 12:28 | Discharge Instructions ---
Discharge Instructions Date of Service Jan 16, 2017. Admission Reason for Admission: Closed Displaced Fracture Of Right Femoral Neck Discharge Discharge Diagnosis / Problem: Clsoed displaced fracture of right femoral neck Discharge Goals Goal(s): Decrease discomfort, Improve function, Increase independence Activity Recommendations Activity Limitations: per Instructions/Follow-up section Lifting Limitations: no more than 10 pounds, gradually increase as tolerated Exercise/Sports Limitations: none Shower/Bathe: may shower/bathe in 3 days (May shower briefly, do not submerge incision underwater.) Weightbearing Status: Right weightbearing (as tolerated) .WBAT with walker PT/ OT- For safe gait training with walker only, NO abduction exercises due to abductor repair. Hip precautions. Daily dressing changes to Right hip with wound checks. Instructions / Follow-Up Instructions / Follow-Up You were admitted to [facility] with a fall and diagnosed with R closed femoral neck fracture. - During your stay here you were treated with pain control and other supportive care. - You underwent surgical fixation on 01/[address] Coe. - Your blood count dropped and you did required 2 Units of blood after surgery, your hemoglobin then stabilized to 8.5 at the time of discharge. Have Blood work done on Wednesday to recheck your blood count (called a CBC) Continue taking medications as directed. Continue taking tylenol 1000mg every 8 hours for the next 3 days, you make take [place] for breakthrough pain Q4H as needed. Caution not to take more than 4000mg of Tylenol in a 24 hour period: this includes the scheduled Tylenol and that included in the norco (oxycodone/ acetaminophen 5/325 mg) tablets Follow up: - with Orthopedics as directed: Follow up with Dr. Coe within 1-2 weeks, call [phone] for appt. - with your Primary Care Provider within 1 week. Current Hospital Diet Patient's current hospital diet: Regular Diet Discharge Diet Recommended Diet: Regular Diet Procedures Procedures Performed: Right Bipolar Hip Hemiarthroplasty, Bursectomy, Repair of Abductor Tear Pending Studies Studies pending at discharge: no Medical Emergencies . Who to Call and When: Medical Emergencies: If at any time you feel your situation is an emergency, please call 911 immediately. . Non-Emergent Contact Non-Emergency issues call your: Primary Care Provider Call Non-Emergent contact if: you have a fever, temperature is above 100.5 ( chills or sweats), your pain is not controlled, your pain is worsening, your pain is unusual for you, your pain is concerning you (chest pain, abdominal pain ), you have any medication questions Lightheadedness, dizziness, palpitation, flutter, nausea, vomiting, diarrhea or constipation, or if you have other concerns regarding your health. . Past History Medical & Surgical History: (1) Hypertension (2) Osteoporosis (3) Closed fracture of left proximal humerus (4) Hip fracture (5) Restless leg syndrome (6) Chronic back pain (7) History of CVA (cerebrovascular accident) . "Provider Documentation" section prepared by Modesta Herr. . Housing And Residence Life Director Recommendations Housing And Residence Life Director Recommendations: Right bipolar hemiarthroplasty with abductor muscle repair 01/13/17 s/p hip fracture. WBAT with walker. PT/ OT- For safe gait training with walker only, NO abduction exercises due to abductor repair. Hip precautions. DVT proph- per PCP already on Plavix. Daily dressing changes to Right hip with wound checks. May shower briefly, do not submerge incision underwater. Follow up with Dr. Coe 12-14 days post op, call [phone] for appt. VTE Core Measure Inpt VTE Proph given/why not?: Other Anticoagulation, T.E.D. Stockings, SCD's [place] Drug Monitoring Program Search Results: patient reviewed within database, no issues identified
--- NOTE | 2017-01-16 12:31 | Discharge Summary ---
Discharge Summary Date of Service Jan 16, 2017. (Linda Herr PA-C) Discharge Summary Admission Date: Jan 12, 2017 at 08:48 Discharge Date: Jan 16, 2017 Discharge Disposition: [facility] facility Principal Diagnosis: R closed femoral neck fracture s/p surgical fixation Problems/Secondary Diagnoses: [place], polymyalgia rheumatica with remote use of chronic prednisone, remote smoking hx, Hx CVA in 2009 on plavix, osteoporosis and chronic low back pain, Restless leg syndrome Immunizations: Have You Had Influenza Vaccine: Yes Influenza Vaccine Date: October 31, 2008 History of Tetanus Vaccine?: Unknown History of Pneumococcal: Yes Pneumococcal Date: November 01, 2007 History of Hepatitis B Vaccine: Unknown Procedures: Right bipolar hemiarthroplasty with abductor muscle repair 01/13/17 s/p hip fracture. RIGHT PELVIS/UNILATERAL HIP 2-3VIEWS, RIGHT FEMUR 2 VIEWS ROUTINE 01/12 IMPRESSION: 1. Acute mildly displaced transcervical fracture of the right femoral neck with associated soft tissue swelling. 2. No additional acute pelvic or right femoral fracture identified. CHEST ONE VIEW PORTABLE 01/12 IMPRESSION: 1. No acute cardiopulmonary process. 2. Atherosclerosis with apparent aneurysmal dilation and tortuosity of the thoracic aorta which appears progressed from study dated 10/30/2009 and likely accentuated by patient rotation. RIGHT PELVIS/UNILATERAL HIP 2-3VIEWS, RIGHT FEMUR 2 VIEWS ROUTINE 01/12 IMPRESSION: 1. Acute mildly displaced transcervical fracture of the right femoral neck with associated soft tissue swelling. 2. No additional acute pelvic or right femoral fracture identified. (CHEST) THORAX WITHOUT 01/12 IMPRESSION: 1. Extensive atherosclerotic vascular disease without thoracic aortic aneurysm. Previously questioned aneurysmal dilation is attributed to projection and thoracic aortic tortuosity. 2. Evidence of pulmonary arterial hypertension. 3. Pleural-based noncalcified pulmonary nodule of the lateral basal segment left lower lobe is seen, 7 x 5 mm. Follow-up according to guidelines below recommended. 4. Chronic volume loss and scarring of the left lung base with associated sigmoidal thoracolumbar scoliosis. 5. Multiple low attenuating lesions throughout the hepatic parenchyma measuring up to 2.1 cm are nonspecific without comparison on this noncontrast study. RIGHT HIP UNILATERAL 2 VIEWS 01/14 IMPRESSION: Anatomic alignment status post total right hip replacement. SINGLE VIEW CHEST 01/14 IMPRESSION: Cardiomegaly with no acute cardiopulmonary abnormality. There has been no significant change from 01/12/2017. Consultations: Orthopedics (Linda Herr, ROSALIA) Medication Reconciliation New Medications: Acetaminophen (Sb Non-Aspirin Extra Stre) 500 Mg Tab 1000 MG PO Q8 for 3 Days, #18 TAB Bisacodyl (Bisac-Evac) 10 Mg Supp 10 MG MN DAILY PRN for Constipation for 14 Days, #14 SUPP Pantoprazole (Pantoprazole Sodium) 40 Mg Tab 40 MG PO DAILY for 30 Days, #30 TAB Polyethylene (Miralax) 17 Gm Pow 17 GM PO DAILY PRN for Constipation for 30 Days, #30 DOSE Sennosides-Docusate Sodium (Senokot S) 1 Tab Tab 2 TAB PO HS PRN for Constipation for 30 Days, #60 TAB Continued Medications: Carvedilol (Coreg) 6.25 Mg Tab 6.25 MG PO BID Cholecalciferol (Vitamin D3) 2,000 Unit Tab 2000 UNITS PO DAILY Clopidogrel (Plavix) 75 Mg Tab 75 MG PO DAILY Denosumab (Prolia) 60 Mg/Ml Margo 1 SYR SC Q6MO Docusate Sodium (Colace) 100 Mg Cap 1 CAP PO DAILY PRN for Constipation for 30 Days, #30 CAP Hydrocodone/Acetaminophen 5MG/325MG ([place] 5MG/325MG) Tab 1 TABLET PO Q4 PRN for Pain, TAB PRN PAIN Melatonin (Kp Melatonin) 3 Mg Tab 1 TAB PO HS PRN for Insomnia for 30 Days, #30 TAB Morphine Sulfate (Morphine Sulfate Er) 30 Mg Tab 30 MG PO QPM Pramipexole Dihydrochloride (Mirapex) 0.25 Mg Tab 1 TAB PO HS for 90 Days, #90 TAB 1 Refill Spironolactone (Aldactone) 25 Mg Tab 25 MG PO DAILY, TAB Discharge Exam Pt evaluation today including: conversation w/ patient, conversation w/ family , physical exam, chart review, lab review Pain: Minimal with hip movement PO Intake: Good Voiding: coello catheter in place The patient was seen and examined this morning. Pt reports doing well, she is eating and drinking without issues. She has not gotten up to walk with PT/OT yet today. She denies any feeling of lightheadedness or dizziness, no palpitations or flutter. Additional Comments: Constitutional: No fever, sweats or chills Eyes: No diplopia, no worsening or blurred vision ENT: normal hearing, no trouble swallowing Respiratory: No cough, sputum, dyspnea at rest or on exertion Cardiovascular: No chest pain, tightness or palpitations Abdomen: No pain, nausea, vomiting, diarrhea, + last BM prior to surgery : +coello catheter in place Musculoskeletal: No joint pain, calf pain, swelling Neurologic: No weakness, numbness/tingling, or balance problems Skin: No rash or itch Physical Exam Notes: General Appearance: WD/WN, no apparent distress, + thin, awake and alert Eyes: PERRL, EOMI ENT: hearing grossly normal, pharynx normal Neck: supple, no JVD Respiratory/Chest: lungs clear, on room air, normal breath sounds, no respiratory distress, no accessory muscle use Cardiovascular: NSR, no murmur, rubs or gallops Abdomen: normal bowel sounds, non tender, soft Extremities: non-tender, no pedal edema, no calf tenderness, + pertinent finding (R hip dressing is C/D/I) Neurologic/Psychiatric: no motor/sensory deficits, normal mood/affect, oriented x 3 Skin: normal color, warm/dry (Linda Herr, ROSALIA) Hospital Course H&P History of Present Illness Source: patient This is a 86 yo F with PMHx of HTN, polymyalgia rheumatica with remote use of chronic prednisone, remote smoking hx, 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 She reports being seated in her living room, and that she was reaching for some cards she was planning on mailing, and the chair moved and she fell on the ground. Pt regularly uses a walker for ambulation and was using it this morning. She was on the ground and crawled to the bedroom to ring for a nurse, and now has a skin tear on her left elbow. She denies any LOC, trauma or injury sustained to the head. The patient states last time she ate was last evening. She reports her pain is currently moderate, although cannot give a number. It is localized to the right hip, and feels like she needs to keep moving her toes although that worsens the pain. She denies any numbness or tingling. Pt notes she was recently treated by Dr. De La Garza and was very sick due to an antibiotic although cannot name it. I called and spoke with nursing at [facility]: the patient recently had a very bad case of C. difficile, on November 19- admitted to [facility] at [facility], due to 1 time dose of Clindamycin used for prophylactic dental procedure and extraction as she was being fitted for a new partial. Pt took plavix last evening. Here in the ED, imaging obtained and shows an Acute mildly displaced transcervical fracture of the right femoral neck with associated soft tissue swelling. No additional acute pelvic or right femoral fracture identified. Hgb is 10.7, and slightly decreased from her baseline of 12.5-13.This is a 86 yo F with PMHx of HTN, polymyalgia rheumatica with remote use of chronic prednisone, remote smoking hx, Hx CVA in 2009 on plavix, osteoporosis and chronic low back pain who presented to the ED s/p a fall at 0645 on 01/13 sustained a R femoral neck fracture, now s/p fixation. Physical Exam Vital Signs Date Time Temp Pulse Resp B/P (MAP) Pulse Ox O2 Delivery O2 Flow Rate FiO2 01/12/17 08:15 86 16 152/96 96 Room Air 01/12/17 07:36 69 18 161/75 95 Room Air 01/12/17 06:42 37.1 69 18 151/108 95 Room Air General Appearance: WD/WN, no apparent distress, + thin Head: normocephalic, atraumatic Eyes: PERRL, EOMI ENT: hearing grossly normal, pharynx normal Neck: supple, no JVD Respiratory/Chest: chest non-tender, lungs clear, no respiratory distress, no accessory muscle use Cardiovascular: no JVD, no murmur, + tachycardia, + pertinent finding (few extra beats) Abdomen/GI: normal bowel sounds, non tender, soft, no organomegaly Extremities/Musculoskelatal: normal inspection, no calf tenderness Neurologic/Psych: alert, normal mood/affect, normal reflexes, oriented x 3 Skin: normal color, warm/dry Hospital Course Osteoporotic R femoral neck fracture - S/p surgical fixation by Dr. Coe on 01/14, POD # 2 - Pain control with oxy 5 mg PO Q4H prn, morphine sulfate 2 mg IV Q2H prn, and tylenol 1 g Q8H merari. PT regularly takes morphine sulfate ER 30 mg QPM for chronic back pain. - Bowel regimen on board w/ dulcolax, mirilax, senna - still no BM yet, nursing to administer prns today - PT/OT ordered- stable for d/c to SNF - Coello out Acute blood loss anemia - Hgb dropped from increased to 8.5, Baseline ~13. - Transfuse 2 U PRBCs 01/15, with 1 g increase, stable - Recommend cbc check within the next week. Hx of C. difficile infection - November 19-2016 s/p Clinda for dental procedure/extraction - Treated with flagyl at that time. Pt denies diarrhea at this time. No current symptoms to suggest that she has an acute flare - Was on Lactinex QID during admission Osteoporosis - Vit D level therapeutic at 41.9 - PT is on denosumab (prolia) 60 mg/mL as outpatient Q6 months HTN - Continue spironolactone 25 mg QAM and coreg 6.25 mg BID Hx of CVA in 2009 - Restarted plavix 01/14 Constipation - Bowel regimen as above, last BM was 01/12, prns ordered day of discharge and bowel regimen sent home with the patient. Restless Leg Syndrome - Continue mirapex 0.25 mg QPM. Chronic Back pain - Analgesia as above, continue home regimen of MS ER 30 mg QPM and allow for IV for break through pain. DVT ppx: Teds, SCDs, plavix CODE STATUS: DNR Disposition: From [facility], planned for discharge to [facility] today Total Time Spent: Greater than 30 minutes This includes examination of the patient, discharge planning, medication reconciliation, and communication with other providers. (Linda Herr PA-C) [facility] Physician Supervision Note: I interviewed and examined the patient. Discussed with Linda Herr PAC and agree with findings and plan as documented in the note. Any exceptions or clarifications are listed here: None PT is doing well no further temp found to have acute blood loss anemia with transfusion 2 u prbc 01/15, modest rise in hgb, no suspicion of hematoma or gi loss though vitals with no further temperature car is reg lungs are clear abdomen remains soft and non tender right surgical wound is not increasingly tender or swollen transfer to snf for subacute rehab, follow hgb for trending, nutritional support Documented By: Prince Albarran (Prince Albarran M.D.) Discharge Instructions Please refer to the electronic Patient Visit Report (Discharge Instructions) for additional information. (Linda Herr PA-C) Follow-Up Follow up with your Primary Care Provider within 1 week. Follow up with orthopedics within 1-[address] Coe (Linda Herr PA-C) Additional Copies To Araceli Contreras
[2017-01-16 13:34] VITALS: BP 126/71; PULSE 95; TEMP 36.2; O2SAT 95
== END 2017-01-16 15:07 | DRG 469 ==
LOC: EDBD 06:34 → C.EDA 06:35 → C.MSW 08:48 → ENRESERV 09:29
PROVIDERS: ADMIT Internal Medicine; ATTEND Internal Medicine
PROC: 0SR90JA Replacement of Right Hip Joint with Synthetic Substitute, Uncemented, Open Approach (ICD-10-PCS; principal; 2017-01-13 12:30)
PROC: 0LQJ0ZZ Repair Right Hip Tendon, Open Approach (ICD-10-PCS; principal; 2017-01-13 12:30)
DX: M80.051A Age-related osteoporosis with current pathological fracture, right femur, initial encounter for fracture (principal); G93.41 Metabolic encephalopathy; D62 Acute posthemorrhagic anemia; S72.001A Fracture of unspecified part of neck of right femur, initial encounter for closed fracture; M70.61 Trochanteric bursitis, right hip; S76.011A Strain of muscle, fascia and tendon of right hip, initial encounter; E11.9 Type 2 diabetes mellitus without complications; I12.9 Hypertensive chronic kidney disease with stage 1 through stage 4 chronic kidney disease, or unspecified chronic kidney disease; N18.3 Chronic kidney disease, stage 3 (moderate); M35.3 Polymyalgia rheumatica; E78.5 Hyperlipidemia, unspecified; M54.9 Dorsalgia, unspecified; K59.00 Constipation, unspecified; G25.81 Restless legs syndrome; E86.0 Dehydration; E83.52 Hypercalcemia; S51.012A Laceration without foreign body of left elbow, initial encounter; G89.4 Chronic pain syndrome; Z66 Do not resuscitate; Z79.02 Long term (current) use of antithrombotics/antiplatelets; Z79.52 Long term (current) use of systemic steroids; Z79.899 Other long term (current) drug therapy; Z86.19 Personal history of other infectious and parasitic diseases; Z86.73 Personal history of transient ischemic attack (TIA), and cerebral infarction without residual deficits; Z87.891 Personal history of nicotine dependence; W19.XXXA Unspecified fall, initial encounter; Y92.000 Kitchen of unspecified non-institutional (private) residence as the place of occurrence of the external cause

== ENCOUNTER → 2017-02-23 | Outpatient (CLI) | payer OTHER, BC ==
[~2017-02-23] MED LIST changes: +ACET-24 PO; -CHOL100010 PO; +CHOL20005 PO; +DENO60SO SC; +DLCS PR; +DOCU-94 PO; -HYDR-3419 PO; +HYDR-5688 PO; -HYDR25TA4 PO; +MELA1TAB5 PO; +MORP1TAB12 PO; -MORP30TA23 PO; +MRLP17X PO; -NISO20TA PO; +PRAM1TAB52 PO; +PRT40 PO; -RISE150T PO; -SENN-63 PO; +SENN8.6T7 PO; +SPIR25TA PO
[2017-02-23 10:18] LABS: HEMATOCRIT 30.7 % (37-47); MEAN CELL VOLUME 94.5 fL (80-100); MEAN CORPUSCULAR HEMOGLOBIN 31.1 pg (25-34); MEAN CORPUSCULAR HGB CONC 32.9 g/dl (32-36); PLATELET COUNT 219 K/uL (130-400); RED BLOOD COUNT 3.25 M/uL (4.2-5.4); WHITE BLOOD COUNT 4.74 K/uL (4.8-10.8)
== END | disposition home or self-care (01) ==
LOC: C.LABFOXMH 09:40 → EDSTATUS 03-09 11:58
PROVIDERS: ATTEND Internal Medicine
DX: D64.89 Other specified anemias (principal)

== ENCOUNTER → 2017-03-16 | Outpatient (CLI) | payer OTHER, BC ==
[2017-03-16 09:06] LABS: BLOOD UREA NITROGEN 22 mg/dl (7-18); BUN/CREATININE RATIO 32.2 (10-20); CALCIUM 9.6 mg/dl (8.5-10.1); CARBON DIOXIDE 25 mmol/L (21-32); CHLORIDE 104 mmol/L (98-107); CREATININE 0.68 mg/dl (0.60-1.20); GLUCOSE 83 mg/dl (70-99); POTASSIUM 5.5 mmol/L (3.5-5.1); SODIUM 136 mmol/L (136-145)
== END | disposition home or self-care (01) ==
LOC: C.LABFOXDH 08:17
PROVIDERS: ATTEND Internal Medicine
DX: I10 Essential (primary) hypertension (principal)

== ENCOUNTER → 2017-03-30 | Outpatient (CLI) | payer OTHER, BC | END | disposition home or self-care (01) | LOC: C.LABFOXDH 07:49 | PROVIDERS: ATTEND Nurse Practitioner Family | DX: E78.6 Lipoprotein deficiency (principal) ==

== ENCOUNTER → 2017-06-11 | Outpatient (CLI) | payer OTHER, BC ==
[~2017-06-11] MED LIST changes: +PANT1TAB4 PO; -PRT40 PO
[2017-06-11 08:57] LABS: HEMATOCRIT 31.4 % (37-47); HEMOGLOBIN 10.3 g/dL (12.0-16.0); MEAN CELL VOLUME 95.4 fL (80-100); MEAN CORPUSCULAR HEMOGLOBIN 31.3 pg (25-34); MEAN CORPUSCULAR HGB CONC 32.8 g/dl (32-36); MEAN PLATELET VOLUME 9.7 fL (7.4-10.4); PLATELET COUNT 185 K/uL (130-400); RED CELL DISTRIBUTION WIDTH CV 12.3 % (11.5-14.5); RED CELL DISTRIBUTION WIDTH SD 42.4 fL (36.4-46.3); WHITE BLOOD COUNT 5.43 K/uL (4.8-10.8)
[2017-06-11 09:05] LABS: ALBUMIN 3.5 gm/dl (3.4-5.0); ALT/SGPT 14 U/L (12-78); BLOOD UREA NITROGEN 17 mg/dl (7-18); CARBON DIOXIDE 27 mmol/L (21-32); CREATININE 0.57 mg/dl (0.60-1.20); GLUCOSE 81 mg/dl (70-99); POTASSIUM 4.3 mmol/L (3.5-5.1); SODIUM 134 mmol/L (136-145)
[2017-06-11 09:16] LABS: ALKALINE PHOSPHATASE 56 U/L (45-117); AST/SGOT 15 U/L (15-37); TOTAL PROTEIN 5.9 gm/dl (6.4-8.2)
== END | disposition home or self-care (01) ==
LOC: C.LABFOXDH 08:33
PROVIDERS: ATTEND Internal Medicine
DX: R00.0 Tachycardia, unspecified (principal)

== ENCOUNTER → 2017-09-13 | Outpatient (CLI) | payer OTHER, BC ==
[~2017-09-13] MED LIST changes: -PANT1TAB4 PO; +PRT40 PO
[2017-09-13 10:25] LABS: BLOOD UREA NITROGEN 30 mg/dl (7-18); CALCIUM 9.7 mg/dl (8.5-10.1); CARBON DIOXIDE 29 mmol/L (21-32); CREATININE 0.94 mg/dl (0.60-1.20); GLUCOSE 80 mg/dl (70-99); POTASSIUM 5.6 mmol/L (3.5-5.1); SODIUM 139 mmol/L (136-145)
== END ==
LOC: C.LABFOXDH 08:54
PROVIDERS: ATTEND Internal Medicine
DX: I10 Essential (primary) hypertension (principal)

== ENCOUNTER → 2018-02-10 | Outpatient (CLI) | payer BC ==
[~2018-02-10] MED LIST changes: +PANT1TAB4 PO; -PRT40 PO
--- NOTE | 2018-02-10 10:23 | DIAGNOSTIC IMAGING REPORT ---
(CHEST) THORAX WITHOUT CT DOSE: 183.60 mGy.cm CLINICAL HISTORY: 87 years-old Female with F/U PULMONARY NODULE. Follow-up study to assess pulmonary nodule TECHNIQUE: Multiaxial CT images of the chest were performed without contrast. A dose lowering technique was utilized adhering to the principles of ALARA. COMPARISON: Chest CT 01/12/2017. FINDINGS: Homogeneous appearance of the thyroid. Heart is enlarged with coronary arterial calcifications. No thoracic aortic aneurysm. Extensive calcifications of the aorta with tortuosity about the descending thoracic aorta. Dilation of the main pulmonary artery may reflect pulmonary arterial hypertension. No pathologically enlarged lymph nodes identified. Pleural-parenchymal scarring of the apices. Volume loss with linear subsegmental reticular opacities of the left lower lobe suggest scarring/atelectasis. No pneumothorax or pleural effusion. No focal airspace consolidation to suggest pneumonia. 3 mm solid nodule of the right middle lobe, image 143 series 4 is noted in addition to additional scattered nodules of the right middle lobe measuring up to 4 mm. Pleural-based 4 mm nodule of the lateral segment right middle lobe is unchanged. 2 mm solid nodule of the superior segment right lower lobe. This was not definitively seen on prior. Unchanged 7 x 5 mm solid nodule of the lateral basal segment left lower lobe, image 212 series 4. There is a new nodular area of consolidation of the inferior segment lingula measuring 12 x 8 mm on image 164 series 4. Calcifications of the tracheobronchial tree. Multiple hypodense lesions about the liver redemonstrated suggesting hepatic cysts. Soft tissues and breast parenchyma are unremarkable. Demineralized appearance of the bones with degenerative changes again noted. Fractured stimulator leads are noted overlying the mid thoracic spine attending within the subcutaneous tissues. Sigmoidal scoliosis. IMPRESSION: 1. Bilateral scattered pulmonary nodules with unchanged size and appearance of the 7 x 5 mm solid nodule of the left lower lobe. There is however a new consolidative nodular focus about the inferior segment lingula which measures up to 12 mm in greatest dimension. Infectious or inflammatory versus neoplastic nodule are differential considerations. Follow-up guidelines provided below. 2. No lobar airspace consolidation or adenopathy. 3. Cardiomegaly. 4. Additional findings as above. Please refer to below summary of Fleischner criteria recommendations for follow-up of incidental CT nodules (Dorian Jimenes, Guidelines for management of small pulmonary nodules detected on CT scans: A statement from the Fleischner Society, Radiology 237: [phone].) SOLID NODULES Multiple nodules size: >8 mm * Low risk patients: follow-up at 3-6 months, then consider further follow-up at 18-24 months * high risk patients: follow-up at 3-6 months, then at 18-24 months if no change Note: newly detected indeterminate nodule in persons 35 years of age or older. * Low risk patients: minimal or absent history of smoking and/or other known risk factors * high risk patients: history of smoking or of other known risk factors (e.g. first degree relative with lung cancer, or exposure to asbestos, radon, uranium) * if a nodule up to 8 mm is partly solid or is ground glass further follow-up is required after 24 months to exclude possible slow growing adenocarcinoma (ROGE) The above report was generated using voice recognition software. It may contain grammatical, syntax or spelling errors. Electronically signed by: Jose Adam M.D. 02/10/2018 10:22 AM Dictated Date/Time: 02/10/2018 10:09 AM
== END | disposition home or self-care (01) ==
LOC: C.CTS 09:52
PROVIDERS: ATTEND Internal Medicine
DX: R91.8 Other nonspecific abnormal finding of lung field (principal); I51.7 Cardiomegaly